=== PATIENT | female | born 1945 | race Caucasian/White ===

== ENCOUNTER 2017-08-11 14:00 | Emergency (ER) | payer MEDICARE | END 2017-08-11 14:47 | disposition home or self-care (01) | LOC: ER 14:47 | DX: B02.9 Zoster without complications (principal); E11.40 Type 2 diabetes mellitus with diabetic neuropathy, unspecified; I11.0 Hypertensive heart disease with heart failure; I50.9 Heart failure, unspecified; E11.22 Type 2 diabetes mellitus with diabetic chronic kidney disease; M10.9 Gout, unspecified; M79.7 Fibromyalgia | CPT/HCPCS: 99283 ==

== ENCOUNTER 2019-02-24 12:41 | Emergency (ER) | payer MEDICARE ==
[~2019-02-24] VITALS: Ht 162.6 cm; Wt 157.9 kg
[~2019-02-24 12:41] MED LIST: ALLO100T PO; ALLO300T PO; CARV6.25 PO; CETI10TA22 PO; CYCL5TAB PO; Cyclobenzaprine Hcl PO; FAMC500T PO; FLUC100T7 PO; FURO40TA4 PO; FURO80TA3 PO; GABA-585 PO; HUM100VI SQ; Hydrocodone/Acetaminophen PO; INSU100C4 SQ; MONT10TA49 PO; MORP30TA PO; SPIR25TA5 PO; TRAM50TA PO
[2019-02-24 13:05] VITALS: BP 152/72
[2019-02-24] MEDS ORDERED: DIPHTH,PERTUSS(ACELL),TET TOX 0.5 ML DISP.SYRIN. VAX IM ONE ×2 (13:30→13:42)
[2019-02-24] MEDS ORDERED: AMOX1TAB61 PO (13:34)
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
== END 2019-02-24 13:51 | disposition home or self-care (01) ==
LOC: ER 12:41
DX: S60.221A Contusion of right hand, initial encounter (principal); N28.9 Disorder of kidney and ureter, unspecified; E11.9 Type 2 diabetes mellitus without complications; I11.0 Hypertensive heart disease with heart failure; I50.9 Heart failure, unspecified; M10.9 Gout, unspecified; E66.9 Obesity, unspecified; Z68.43 Body mass index [BMI] 50.0-59.9, adult; Z90.710 Acquired absence of both cervix and uterus; W54.0XXA Bitten by dog, initial encounter; Y93.89 Activity, other specified; Y92.89 Other specified places as the place of occurrence of the external cause; Y99.8 Other external cause status
CPT/HCPCS: 90471; 90715; 99284

== ENCOUNTER 2019-05-20 13:27 | Emergency (ER) | payer MEDICARE ==
[~2019-05-20] VITALS: Ht 162.6 cm; Wt 145.1 kg
[~2019-05-20 13:27] MED LIST changes: +AMOX1TAB61 PO; -CETI10TA22 PO; +CETI10TA24 PO
[2019-05-20] MEDS ORDERED: ONDANSETRON ODT 4 MG TAB.RAPDIS. ONE (14:02)
[2019-05-20] MEDS ORDERED: oxyCODONE/APAP 5/325 1 TAB TABLET PO ONE (14:15)
[2019-05-20] MEDS ORDERED: ONDANSETRON ODT 4 MG TAB.RAPDIS. PO ONE (14:15)
--- NOTE | 2019-05-20 14:41 | RAD ---
Examination: CT head and cervical spine without contrast HISTORY: History of fall off the stairs, trauma CT HEAD COMPARISON: None Available. Exposure: One or more of the following individualized dose reduction techniques were utilized for this examination: 1. Automated exposure control 2. Adjustment of the mA and/or kV according to patient size 3. Use of iterative reconstruction technique TECHNIQUE: 5 mm contiguous axial images were obtained from the skull base to the vertex in both bone and soft tissue algorithm. FINDINGS: No abnormal attenuation within the brain parenchyma. No evidence of acute intracranial hemorrhage. No extra-axial fluid collections. No mass effect or midline shift. Ventricular size is appropriate. Basal cisterns are patent. No fractures identified.Mukherjee-white differentiation is preserved.Globes and orbits are within normal limits. Paranasal sinuses and mastoid air cells are clear. IMPRESSION: No acute intracranial findings. CT CERVICAL SPINE INDICATION: Fall COMPARISON: 11/14/2013 Technique: 2.5 mm contiguous axial images were obtained from the skull base through the cervicothoracic junction in both bone and soft tissue algorithm. Additional sagittal and coronal reconstructions were also performed. FINDINGS: Vertebral body heights and alignment are maintained. Cervical lordosis is preserved. The lateral masses of C1 are aligned upon C2. No fractures identified. Moderate to severe intervertebral disc height loss identified in the cervical spine particularly at C4-C5, C5-C6, C6-C7 vertebral levels with anterior and posterior osteophyte formation. The bilateral facets are well aligned. The paraspinous soft tissues are unremarkable. Visualized intracranial contents are unremarkable. Lung apices are clear. IMPRESSION: 1. No acute fracture cervical spine. Correlate clinically. 2. Moderate to severe degenerative changes cervical spine. Electronically signed by: Miguel Dang MD (05/20/2019 2:38 PM) [id number]
--- NOTE | 2019-05-20 15:05 | RAD ---
Examination: 2 views of the lumbar spine, 3 views of the bilateral knees, 2 views of the right hip with frontal view of the pelvis HISTORY: History of fall COMPARISON: None available FINDINGS: The bilateral femoral heads within the acetabula. There is mild to moderate joint space loss bilateral hip joint likely degenerative changes. The lumbar vertebral body heights are maintained. Moderate to severe degenerative changes identified in the lumbar spine. Severe joint space loss identified in the medial, lateral, patellofemoral compartments likely tricompartmental degenerative changes bilateral knees. IMPRESSION: 1. No acute osseous findings. 2. Degenerative changes as described above. Electronically signed by: Miguel Dang MD (05/20/2019 3:03 PM) [id number]
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
[2019-05-20 16:31] VITALS: BP 138/63
== END 2019-05-20 18:03 | disposition home or self-care (01) ==
LOC: ER 13:27
DX: G89.29 Other chronic pain (principal); M54.5 Low back pain; G89.11 Acute pain due to trauma; R51 Headache; M25.561 Pain in right knee; M25.562 Pain in left knee; M25.551 Pain in right hip; M10.9 Gout, unspecified; E66.9 Obesity, unspecified; Z68.43 Body mass index [BMI] 50.0-59.9, adult; E11.9 Type 2 diabetes mellitus without complications; I11.0 Hypertensive heart disease with heart failure; I50.9 Heart failure, unspecified; Z90.710 Acquired absence of both cervix and uterus; Z98.890 Other specified postprocedural states; W01.0XXA Fall on same level from slipping, tripping and stumbling without subsequent striking against object, initial encounter; Y93.01 Activity, walking, marching and hiking; Y92.89 Other specified places as the place of occurrence of the external cause; Y99.8 Other external cause status
CPT/HCPCS: 70450; 72100; 72125; 73502; 73562; 99284; Q0162

== ENCOUNTER 2020-05-17 08:47 | Emergency (ER) | payer MEDICARE ==
[~2020-05-17] VITALS: Ht 162.6 cm; Wt 150.0 kg
[~2020-05-17 08:47] MED LIST changes: -CETI10TA24 PO; +CETI10TA74 PO; -FAMC500T PO; +FAMC500T3 PO
[2020-05-17 08:54] VITALS: BP 154/68
[2020-05-17] MEDS ORDERED: traMADol 50 MG TABLET PO ONE (09:15)
[2020-05-17] MEDS ORDERED: ALLOPURINOL 300 MG TABLET. PO SCH (09:15)
--- NOTE | 2020-05-17 09:22 | PHYS DOC ---
Past Medical History Past Medical History: Arthritis, CHF, Diabetes-Type II, Fibromyalgia, Hyp ertension, Renal Disease, Other Additional Past Medical Histor: gout, obesity Past Surgical History: Hysterectomy, Other Additional Past Surgical Histo: cervial laminectomy, lumbar laminectomy Smoking Status: Former Smoker Alcohol Use: None Drug Use: None General Adult EDM: Chief Complaint: LOWER EXT PAIN HPI: HPI: 74-year-old female past medical history significant for gout, hypertension, diabetes, obesity, fibromyalgia and CHF on Lasix, presents the ED brought in by EMS with complaints of right foot and ankle pain that started 2 days ago, denies any new trauma. States pain has gotten worse that she can "no longer walk on it." States she has not taken her medications this morning. Cannot recall her last gout flareup but states this feels different. Also reports right hip pain but states this is chronic-no new characteristics. States she has been unable to refill her hydrocodone from Dr. Harrell due to pharmacy requesting pcp to sign a particular form - has not seen pcp regarding this. No associated rash or fever. Review of Systems: Review of Systems: Constitutional: Denies fever or chills. [] Eyes: Denies change in visual acuity. [] HENT: Denies nasal congestion or sore throat. [] Respiratory: Denies cough or shortness of breath. [] Cardiovascular: Denies chest pain or edema. [] GI: Denies abdominal pain, nausea, vomiting, bloody stools or diarrhea. [] : Denies dysuria or hematuria Musculoskeletal: Denies back pain or joint swelling Integument: Denies rash or diaphoresis Neurologic: Denies headache, focal weakness or sensory changes. [] Endocrine: Denies polyuria or polydipsia. [] Lymphatic: Denies swollen glands. [] Psychiatric: Denies depression or anxiety. [] Heart Score: Risk Factors: Risk Factors: DM, Current or recent (<one month) smoker, HTN, HLP, family history of CAD, obesity. Risk Scores: Score 0 - 3: 2.5% MACE over next 6 weeks - Discharge Home Score 4 - 6: 20.3% MACE over next 6 weeks - Admit for Clinical Observation Score 7 - 10: 72.7% MACE over next 6 weeks - Early Invasive Strategies Current Medications: Current Medications Medications (Trade) Dose Ordered Sig/Magali Start Time Stop Time Status Last Admin Dose Admin Allopurinol (Zyloprim) 600 mg DAILY 05/18/20 09:00 UNV Tramadol HCl (Ultram) 100 mg 1X ONCE 05/17/20 09:15 05/17/20 09:16 Allergies: Allergies: Allergies Coded Allergies Type Severity Reaction Last Updated Verified No Known Drug Allergies 12/25/13 No Physical Exam: PE: Constitutional: Well developed, well nourished, no acute distress, non-toxic appearance, obese HENT: Normocephalic, atraumatic, Eyes: EOMI, conjunctiva normal, no discharge. Neck: Normal range of motion, supple, Cardiovascular: S1/2 present, regular rhythm Lungs & Thorax: Speaking in full sentences, bilateral equal chest rise, no tachypnea or increased work of breathing Abdomen: soft, no tenderness, Skin: Warm, dry, no erythema, no rash. [] Back: No tenderness, no CVA tenderness. [] Extremities: No tenderness, no cyanosis, bilateral chronic lower extremity edema with hemosiderin deposition, R DP/PT intact, ttp over dorsum and plantar aspect of metatarsals and over right lateral malleoli Neurologic: Alert and oriented X 3, normal motor function, normal sensory function, no focal deficits noted. [] Psychologic: Affect normal, judgement normal, mood normal. [] Current Patient Data: Vital Signs: Vital Signs Date Time Temp Pulse Resp B/P (MAP) Pulse Ox O2 Delivery O2 Flow Rate FiO2 05/17/20 08:54 98.9 83 18 154/68 (96) 97 Room Air 98.9 EKG: EKG: [] Radiology/Procedures: Radiology/Procedures: IMAGING REPORT Signed PATIENT: ZI DELUCA ACCOUNT: [id number] : 1945 LOCATION: ER AGE: 74 SEX: F EXAM STATUS: REG ER ORD. PHYSICIAN: ARAVIND REYNA DO REASON: foot pain PROCEDURE: FOOT RIGHT 3V Clinical indications: Right hip pain and right foot pain. 2 view study of the right hip and AP view of the pelvis: No acute fracture or dislocation or lytic process is seen. There is mild degenerative joint space narrowing of the right hip joint without significant spurring. There is mild degenerative joint space narrowing of the left hip joint without spurring. No diastases is seen. IMPRESSION: No acute fracture. Mild primary degenerative osteoarthritis of both hip joints. Three-view right foot study: No acute fracture or dislocation or lytic process is seen. No periosteal reaction is evident. Plantar and posterior spurs of the calcaneus are seen. Dorsal spurring of the talonavicular joint and the first tarsal metatarsal joint is seen. Degenerative spurring of the tibiotalar joint compartment is seen. There is mild primary degenerative osteoarthritis of the first metatarsal phalangeal joint. IMPRESSION: No acute osseous abnormality. Electronically signed by: Dirk Dimas MD (05/17/2020 9:43 AM) [id number] DICTATED and SIGNED BY: DIRK DIMAS MD DATE: 05/17/20 [id number] Course & Med Decision Making: Course & Med Decision Making Pertinent Labs and Imaging studies reviewed. (See chart for details) Concern for atraumatic right foot pain with no signs of cellulitis, infection, worsening swelling, neurovascular injury or joint effusion. Also with chronic right hip pain. Pain could represent early gout infection. Unremarkable x- rays. Pt in no distress. Recommend [id number] analgesia and PMD follow-up for any narcotic refills. Will discharge home with strict ED return precautions were given for fever, rash, neurologic deficits. Encouraged urgent outpatient follow-up with PMD and orthopedic surgery. Life-threatening processes were considered but are low suspicion at this time, given history, physical exam and ED workup. Pt was educated on all prescription medications and adverse effects. All patient's questions were answered and pt was stable at time of discharge. Life/limb-threatening differential includes but is not limited to, trauma (fracture, dislocation, laceration, compartment syndrome, tendon or ligament injury), neurovascular injury or deficit, infection (osteomyelitis, abscess, cellulitis, septic arthritis, necrotizing fasciitis), deep vein thrombosis, renal/cardiac/liver disease, medication adverse effect, lymphedema/anasarca, vascular insufficiency or malignancy, I spoken with the patient and her caregivers. I explained the patient's condition, diagnoses and treatment plan based on the information available to me at this time. I have answered the patient and her caregiver's questions and addressed any concerns. The patient and her caregivers have a good understandi ng of patient's diagnosis, condition and treatment plan as can be expected at this point. Vital signs have been stable. Patient's condition is stable and appropriate for discharge from the emergency department. Patient will pursue further outpatient evaluation with primary care physician or other designated or consulting physician as outlined in the discharge instructions. The patient and/or caregivers are agreeable to this plan of care and follow-up instructions have been explained in detail. The patient and/or caregivers have received these instructions in written form and have expressed an understanding of the discharge instructions. The patient and/or caregivers are aware that any significant change of condition or worsening of symptoms should prompt immediate return to this or the closest emergency department or call to 911. Elepath Disclaimer: Elepath Disclaimer: This electronic medical record was generated, in whole or in part, using a voice recognition dictation system. Departure Departure Impression: Primary Impression: Right foot pain Additional Impression: History of gout Disposition: 01 DC HOME SELF CARE/HOMELESS Condition: STABLE Referrals: IWONA HARRELL MD (PCP) in 2-3 days Patient Instructions: Ankle Pain, Gout Additional Instructions: FOLLOW UP WITH ORTHOPEDICS: Orthopaedic Sports Medicine Orthopaedic Surgery [facility] Address: [address] [place] [address] EMERGENCY DEPARTMENT GENERAL DISCHARGE INSTRUCTIONS Thank you for coming to [facility] Emergency Department (ED) today and trusting us with you care. We trust that you had a positive experience in our Emergency Department. If you wish to speak to the department management, you may call the Director at [phone]. YOUR FOLLOW UP INSTRUCTIONS ARE FOLLOWS: 1. Do you have a private Doctor? If you do not have a private doctor, please ask for a resource list of physicians or clinics that may be able to assist you with follow up care. 2. The Emergency Physicain has interpreted your x-rays. The X-Ray specialist will also review them. If there is a change in the findings, you will be notified in 48 hours when at all possible. 3. A lab test or culture has been done, your results will be reviewed and you will be notified if you need a change in treatment. ADDITIONAL INSTRUCTIONS AND INFORMATION: 1. Your care today has been supervised by a physician who is specially trained in emergency care. Many problems require more than one evaluation for a complete diagnosis and treatment. We recommend that you schedule your follow up appointment as recommended to ensure complete treatment of you illness or injury. If you are unable to obtain follow up care and continue to have a problem, or if your condition worsens, we recommend that you return to the ED. 2. We are not able to safely determine your condition over the phone nor are we able to give sound medical advice over the phone. For these safety reasons, if you call for medical advice we will ask you to come to the ED for further evaluation. 3. If you have any questions regarding these discharge instructions please call the ED at [phone]. SAFETY INFORMATION: In the interest of safety, wellness, and injury prevention; we encourage you to wear your sealbelt, if you smoke; quite smoking, and we encourage family to use a protective helmet for bicycling and other sporting events that present an increased risk for head injury. IF YOUR SYMPTOMS WORSEN OR NEW SYMPTOMS DEVELOP, OR YOU HAVE CONCERNS ABOUT YOUR CONDITION; OR IF YOUR CONDITION WORSENS WHILE YOU ARE WAITING FOR YOUR FOLLOW UP APPOINTMENT; EITHER CONTACT YOUR PRIMARY CARE DOCTOR, THE PHYSICIAN WHOSE NAME AND NUMBER YOU WERE GIVEN, OR RETURN TO THE ED IMMEDIATELY. ARAVIND CASTILLO DO May 17, 2020 09:22
--- NOTE | 2020-05-17 09:49 | RAD ---
Clinical indications: Right hip pain and right foot pain. 2 view study of the right hip and AP view of the pelvis: No acute fracture or dislocation or lytic pr ocess is seen. There is mild degenerative joint space narrowing of the right hip joint without signif icant spurring. There is mild degenerative joint space narrowing of the left hip joint without spurri ng. No diastases is seen. IMPRESSION: No acute fracture. Mild primary degenerative osteoarthritis of both hip joints. Three-view right foot study: No acute fracture or dislocation or lytic process is seen. No periosteal reaction is evident. Plantar and posterior spurs of the calcaneus are seen. Dorsal spurring of the t alonavicular joint and the first tarsal metatarsal joint is seen. Degenerative spurring of the tibiot alar joint compartment is seen. There is mild primary degenerative osteoarthritis of the first metata rsal phalangeal joint. IMPRESSION: No acute osseous abnormality. Electronically signed by: Lowell Dimas MD (05/17/2020 9:43 AM) [id number]
== END 2020-05-17 10:12 | disposition home or self-care (01) ==
LOC: ER 08:47
DX: M79.671 Pain in right foot (principal); M10.9 Gout, unspecified; E11.9 Type 2 diabetes mellitus without complications; I11.0 Hypertensive heart disease with heart failure; I50.9 Heart failure, unspecified; Z87.891 Personal history of nicotine dependence; Z90.710 Acquired absence of both cervix and uterus
CPT/HCPCS: 73502; 73630; 99284

== ENCOUNTER 2021-09-29 13:26 | Inpatient (IN) | payer MEDICARE ==
[~2021-09-29] VITALS: Ht 162.6 cm; Wt 141.4 kg
[2021-09-29] MEDS: ACETAMINOPHEN/CODEINE 300/30MG TABLET. PO PRN ×2 (11:30→23:30)
[2021-09-29] MEDS: ERYTHROMYCIN 0.5% OPHTH OINTMENT 1GM TUBE. OU SCH ×2 (11:30→23:30)
[2021-09-29 14:02] LABS: BASO % 0 % (0-3); EOS # 0.2 x10^3/uL (0.0-0.7); EOS % 2 % (0-3); HEMATOCRIT 35.5 % (36.0-47.0); HEMOGLOBIN 11.8 g/dL (12.0-15.5); LYMPH # 0.8 x10^3/uL (1.0-4.8); LYMPH % 7 % (24-48); MEAN CORPUSCULAR HEMOGLOBIN 31 pg (25-35); MEAN CORPUSCULAR HGB CONC 33 g/dL (31-37); MEAN CORPUSCULAR VOLUME 93 fL (79-100); MONO # 0.7 x10^3/uL (0.0-1.1); MONO % 6 % (0-9); NEUT # 9.5 x10^3/uL (1.8-7.7); NEUT % 85 % (31-73); PLATELET COUNT 223 x10^3/uL (140-400); RED BLOOD COUNT 3.81 x10^6/uL (3.50-5.40); WHITE BLOOD COUNT 11.2 x10^3/uL (4.0-11.0)
--- NOTE | 2021-09-29 14:04 | EKG ---
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
[2021-09-29 14:10] LABS: CALCIUM 8.8 mg/dL (8.5-10.1); CREATININE 2.1 mg/dL (0.6-1.0); GFR 22.8; POTASSIUM 3.6 mmol/L (3.5-5.1)
[2021-09-29 14:14] LABS: PROTHROMBIN TIME PATIENT 15.1 SEC (11.7-14.0)
[2021-09-29 14:16] LABS: ALBUMIN 3.2 g/dL (3.4-5.0); ALBUMIN/GLOBULIN RATIO 0.8 (1.0-1.7); MAGNESIUM 2.1 mg/dL (1.8-2.4); TOTAL BILIRUBIN 1.5 mg/dL (0.2-1.0)
[2021-09-29 14:18] LABS: D-DIMER 0.5 ug/mlFEU (0.00-0.50)
--- NOTE | 2021-09-29 14:53 | PHYS DOC ---
Past Medical History Past Medical History: Arthritis, CHF, Diabetes-Type II, Fibromyalgia, Hypertension, Renal Disease, Other Additional Past Medical Histor: gout, obesity, cardiomegaly. Pt becomes upset when asked about med hx. (TOBI RAMIREZ APRN) Past Surgical History: Hysterectomy, Other Additional Past Surgical Histo: cervial laminectomy, lumbar laminectomy (TOBI RAMIREZ APRN) Smoking Status: Never Smoker Alcohol Use: None Drug Use: None (TOBI RAMIREZ APRN) General Adult EDM: Chief Complaint: SHORTNESS OF BREATH HPI: HPI: Patient is a 75 year old female who presents to the emergency department complaining of shortness of breath for the past 4 days. Patient reports she seen her primary care physician Dr. Harrell 2 weeks ago for abnormal checkup but was not ill at that time. Patient states that she has worsening shortness of breath with exertion. Denies chest pain or discomfort. Denies nausea, vomiting, diarrhea, denies chest congestion or nasal congestion. Denies recent fever or chills. Patient denies abdominal pain or discomfort. Patient denies other physical complaints or physical concerns. (TOBI RAMIREZ APRN) Review of Systems: Review of Systems: 14 body systems of review of systems have been reviewed. See HPI for pertinent positives and negative responses, otherwise all other systems are negative, nonpertinent or noncontributory. Constitutional: Negative except as outlined in HPI above. Skin: Negative except as outlined in HPI above. Eyes: Negative except as outlined in HPI above. HENT: Negative except as outlined in HPI above. Respiratory: Negative except as outlined in HPI above. Cardiovascular: Negative except as outlined in HPI above. GI: Negative except as outlined in HPI above. : Negative except as outlined in HPI above. Musculoskeletal: Negative except as outlined in HPI above. Integument: Negative except as outlined in HPI above. Neurologic: Negative except as outlined in HPI above. Endocrine: Negative except as outlined in HPI above. Lymphatic: Negative except as outlined in HPI above. Psychiatric: Negative except as outlined in HPI above. (TOBI RAMIREZ APRN) Heart Score: C/O Chest Pain: No Risk Factors: Risk Factors: DM, Current or recent (<one month) smoker, HTN, HLP, family history of CAD, obesity. Risk Scores: Score 0 - 3: 2.5% MACE over next 6 weeks - Discharge Home Score 4 - 6: 20.3% MACE over next 6 weeks - Admit for Clinical Observation Score 7 - 10: 72.7% MACE over next 6 weeks - Early Invasive Strategies (TOBI RAMIREZ APRN) Allergies: Allergies: Allergies Coded Allergies Type Severity Reaction Last Updated Verified No Known Drug Allergies 12/25/13 No (TOBI RAMIREZ APRN) Physical Exam: PE: Constitutional: Well developed, well nourished, no acute distress, non-toxic appearance. 75-year-old female in no apparent distress. HENT: Normocephalic, atraumatic. Oropharynx moist, pink, no deep tissue infectious process appreciated. Nasal turbinates patent. Eyes: Conjunctiva slightly erythematous with yellow purulent discharge bilaterally. PERRLA Neck: Normal range of motion, no stridor. There is no nuchal rigidity, no meningeal signs. Cardiovascular: No cyanosis appreciated, distal cap refill less than 2 seconds. Regular rate and rhythm, heart sounds S1-S2 to auscultation. Lungs & Thorax: Patient is in no respiratory distress, no audible adventitious lung sounds appreciated. Lung sounds are clear to auscultation upper lobes, diminished bilateral lower lobes, no other adventitious lung sounds appreciated per auscultation. Abdomen: Nontender, no abnormalities noted. Skin: Warm, dry, no erythema, no rash. Back: No tenderness, no deformities. Extremities: No tenderness, no cyanosis, no clubbing, ROM intact, marked lower extremity edema. Neurologic: Alert and oriented X 3, normal motor function, normal sensory function, no focal deficits noted. Psychologic: Affect normal, judgement normal, mood normal. (TOBI RAMIREZ APRN) Current Patient Data: Labs: Laboratory Tests Test 09/29/21 13:41 White Blood Count 11.2 x10^3/uL (4.0-11.0) H Red Blood Count 3.81 x10^6/uL (3.50-5.40) Hemoglobin 11.8 g/dL (12.0-15.5) L Hematocrit 35.5 % (36.0-47.0) L Mean Corpuscular Volume 93 fL (79-100) Mean Corpuscular Hemoglobin 31 pg (25-35) Mean Corpuscular Hemoglobin Concent 33 g/dL (31-37) Red Cell Distribution Width 15.0 % (11.5-14.5) H Platelet Count 223 x10^3/uL (140-400) Neutrophils (%) (Auto) 85 % (31-73) H Lymphocytes (%) (Auto) 7 % (24-48) L Monocytes (%) (Auto) 6 % (0-9) Eosinophils (%) (Auto) 2 % (0-3) Basophils (%) (Auto) 0 % (0-3) Neutrophils # (Auto) 9.5 x10^3/uL (1.8-7.7) H Lymphocytes # (Auto) 0.8 x10^3/uL (1.0-4.8) L Monocytes # (Auto) 0.7 x10^3/uL (0.0-1.1) Eosinophils # (Auto) 0.2 x10^3/uL (0.0-0.7) Basophils # (Auto) 0.0 x10^3/uL (0.0-0.2) Prothrombin Time 15.1 SEC (11.7-14.0) H Prothrombin Time INR 1.2 (0.8-1.1) H D-Dimer (Melly) 0.50 ug/mlFEU (0.00-0.50) Sodium Level 144 mmol/L (136-145) Potassium Level 3.6 mmol/L (3.5-5.1) Chloride Level 105 mmol/L (98-107) Carbon Dioxide Level 27 mmol/L (21-32) Anion Gap 12 (6-14) Blood Urea Nitrogen 42 mg/dL (7-20) H Creatinine 2.1 mg/dL (0.6-1.0) H Estimated GFR (Cockcroft-Gault) 22.8 BUN/Creatinine Ratio 20 (6-20) Glucose Level 136 mg/dL (70-99) H Calcium Level 8.8 mg/dL (8.5-10.1) Magnesium Level 2.1 mg/dL (1.8-2.4) Total Bilirubin 1.5 mg/dL (0.2-1.0) H Aspartate Amino Transferase (AST) 19 U/L (15-37) Alanine Aminotransferase (ALT) 9 U/L (14-59) L Alkaline Phosphatase 121 U/L (46-116) H Troponin I High Sensitivity 38 ng/L (4-50) Total Protein 7.0 g/dL (6.4-8.2) Albumin 3.2 g/dL (3.4-5.0) L Albumin/Globulin Ratio 0.8 (1.0-1.7) L Laboratory Tests 09/29/21 13:41 Laboratory Tests 09/29/21 13:41 Vital Signs: Vital Signs Date Time Temp Pulse Resp B/P (MAP) Pulse Ox O2 Delivery O2 Flow Rate FiO2 09/29/21 13:46 100.0 91 20 176/82 (113) 95 Room Air 100.0 (TOBI RAMIREZ APRN) EKG: EKG: EKG performed at 1334 by ED nursing staff shows normal sinus rhythm with left a xis deviation, heart rate 86 bpm, OR interval 0.196, QTc interval 0.443, no acute STEMI, no ACS, no acute ischemia appreciated, EKG interpreted by ED attending physician Dr. Liriano. (TOBI RAMIREZ APRN) Radiology/Procedures: Radiology/Procedures: REASON: Shortness of breath PROCEDURE: CHEST PA & LATERAL XR CHEST 2V History: Reason: Shortness of breath / Spl. Instructions: / History: Comparison: August 17, 2015 Findings: No consolidation or pleural effusion. Normal heart size. No pneumothorax. DISH related changes of the thoracic spine. Prominence of the ellie. Impression: 1. No focal consolidation. 2. Prominence of the bilateral ellie, may relate to enlarged pulmonary vasculature or lymphadenopathy. Electronically signed by: Bill Santana DO (09/29/2021 2:59 PM) [id number] (TOBI RAMIREZ APRN) Course & Med Decision Making: Course & Med Decision Making Pertinent Labs and Imaging studies reviewed. (See chart for details) 75-year-old female, vital signs reviewed, presents emerged from concerning short of breath on exertion for the past 4 days. Patient also complains of bilateral eye crusts when she wakes up for the past day. Physical examination is concern ing for exacerbation congestive heart failure, also conjunctivitis. Will order cardiac monitoring, twelve-lead EKG, PA lateral chest, CBC, D-dimer, CMP, magnesium level, NT proBNP, PT/INR, high-sensitivity troponin I, urinalysis assay, blood cultures x2, rapid COVID and flu testing. Lactic acid with reflex. We will start on erythromycin ointment to both eyes regimen every 4 hours x7 days Patient's labs unremarkable or at baseline, called and discussed patient case and ED work-up with patient's primary care physician Dr. Harrell who requested patient be admitted under observation to telemetry unit, 80 of Lasix IV x1, consult cardiology. Patient is awaiting telemetry unit assignment bed at this time. Discussed with patient admission to hospital overnight, patient is amenable to hospital admission. (TOBI RAMIREZ APRN) Dragon Disclaimer: Dragon Disclaimer: This electronic medical record was generated, in whole or in part, using a voice recognition dictation system. (OTBI RAMIREZ APRN) Departure Departure Impression: Primary Impression: Short of breath on exertion Additional Impression: Conjunctivitis Qualified Codes: H10.33 - Unspecified acute conjunctivitis, bilateral Disposition: ADMITTED INPATIENT Admitting Physician: Iwona Harrell (Admit to Dr. Harrell to telemetry unit observation, consult cardiology specialty.) (TOBI RAMIREZ APRN) Condition: GUARDED Referrals: IWONA HARRELL MD (PCP) Scripts Aspirin (ASPIRIN EC) 81 Mg Tablet.dr 1 TAB PO DAILY for heart for 30 Days, #30 TAB 3 Refills Prov: HEIKE FORTUNE APRN 10/04/21 Methylprednisolone (MEDROL) 4 Mg Tab.ds.pk 1 PKG PO UD for copd, #1 PKG Prov: IWONA HARRELL MD 10/04/21 Cefdinir (CEFDINIR) 300 Mg Capsule 1 CAP PO BID for pneumonia, #14 CAP Prov: IWONA HARRELL MD 10/04/21 Insulin Lispro (Admelog) 100 Unit/1 Ml Vial 0 SQ BIDBFRMEAL for DM for 30 Days, #1 EACH Glucose 151-200 give 2 units Glucose 201- 250 give 3 units. Glucose 251-300 give 4 units Glucose 301-350 give 6 units Glucose 351-400 give 8 units. Prov: IWONA HARRELL MD 10/04/21 Lactobacillus Rhamnosus Gg (CULTURELLE) 1 Each Cap.sprink 1 CAP PO BID for antibiotic use for 14 Days, #28 CAP Prov: IWONA HARRELL MD 10/04/21 Erythromycin Base (Erythromycin) 1 Gm Oint...g. 0.5 INCH OU Q4HRS for blephritis for 4 Days, #1 MISC Prov: IWONA HARRELL MD 10/04/21 Guaifenesin (MUCINEX) 600 Mg Tablet.er 600 MG PO BID for cough, #30 TAB.SR Prov: IWONA HARRELL MD 10/04/21 Acetaminophen (ACETAMINOPHEN) 325 Mg Tablet 650 MG PO PRN Q6HRS PRN for MILD PAIN / TEMP > 100.3'F, #30 TAB Prov: WIONA HARRELL MD 10/04/21 Benzonatate (BENZONATATE) 100 Mg Capsule 100 MG PO [id number] for cough for 7 Days, #21 CAP Prov: IWONA HARRELL MD 10/04/21 Heparin Sodium,Porcine (HEPARIN SODIUM) 5,000 Unit/1 Ml Vial 5000 UNIT SQ Q12HR for DVT prophylaxis for 10 Days, #20 EACH Prov: IWONA HARRELL MD 10/04/21 Ipratropium/Albuterol Sulfate (DUONEB 0.5-3(2.5) MG/3 ML) 3 Ml Ampul.neb 3 ML NEB RTQID for COPD for 14 Days, #56 EACH Prov: IWONA HARRELL MD 10/04/21 Insulin Aspart (NOVOLOG) 100 Unit/1 Ml Cartridge 5 UNIT SQ BID for DM for 30 Days, #1 EACH Prov: IWONA HARRELL MD 10/04/21 Hum Insulin Nph/Reg Insulin Hm (HUMULIN 70-30 VIAL) 100 Unit/1 Ml Vial 14 UNIT SQ BID for DM for 30 Days, #1 VIAL IN AM and at bedtime Prov: IWONA HARRELL MD 10/04/21 Attending Signature I have participated in the care of this patient and I have reviewed and agree with all pertinent clinical information above including history, exam, and recommendations. (MAX LIRIANO DO) TOBI RAMIREZ APRN September 29, 2021 14:53 MAX LIRIANO DO Oct 06, 2021 05:52
--- NOTE | 2021-09-29 15:02 | RAD ---
XR CHEST 2V History: Reason: Shortness of breath / Spl. Instructions: / History: Comparison: August 17, 2015 Findings: No consolidation or pleural effusion. Normal heart size. No pneumothorax. DISH related changes of the thoracic spine. Prominence of the ellie. Impression: 1. No focal consolidation. 2. Prominence of the bilateral ellie, may relate to enlarged pulmonary vasculature or lymphadenopathy . Electronically signed by: Bill Santana DO (09/29/2021 2:59 PM) [id number]
[2021-09-29] MEDS ORDERED: FUROSEMIDE 40 MG/4 ML VIAL. IVP ONE (18:30)
[2021-09-29 19:00] VITALS: BP 123/72
[2021-09-29 19:09] LABS: INFLUENZA A PATIENT NEGATIVE (NEGATIVE); INFLUENZA B PATIENT NEGATIVE (NEGATIVE)
[2021-09-29 23:00] VITALS: BP 138/63
[2021-09-30 03:00] VITALS: BP 149/61
[2021-09-30] MEDS: ACETAMINOPHEN/CODEINE 300/30MG TABLET. PO PRN (05:21)
[2021-09-30] MEDS: ERYTHROMYCIN 0.5% OPHTH OINTMENT 1GM TUBE. OU SCH ×5 (05:22→21:29)
[2021-09-30 07:00] VITALS: BP 122/55
[2021-09-30 08:43] LABS: CALCIUM 8.3 mg/dL (8.5-10.1); CREATININE 2.3 mg/dL (0.6-1.0); GFR 20.6; POTASSIUM 3.4 mmol/L (3.5-5.1)
[2021-09-30] MEDS ORDERED: ACETAMINOPHEN PO PRN (08:45)
[2021-09-30] MEDS ORDERED: HYDROCODONE PO PRN (08:45)
[2021-09-30] MEDS ORDERED: CETIRIZINE HCL 10 MG TABLET. PO PRN (08:45)
[2021-09-30 08:48] LABS: CHOLESTEROL/HDL RATIO 2.2
[2021-09-30] MEDS ORDERED: INSULIN NPH/REG HUM 70/30 300 UNITS/3 ML VIAL. SQ SCH (09:00)
--- NOTE | 2021-09-30 09:18 | PDOC ---
Provider Note Date of Service: DATE: 09/30/21 TIME: 09:18 Provider Note H&P dictated [id number] Justifications for Admission Other Justification IWONA GALLOWAY MD September 30, 2021 09:18
[2021-09-30] MEDS: CARVEDILOL 6.25 MG TABLET. PO SCH ×2 (09:55→17:06)
[2021-09-30] MEDS: cefTRIAXone IV Push 1 GM VIAL. IVP SCH (09:55)
[2021-09-30] MEDS: AZITHROMYCIN 500 MG in IV DEXTROSE 5% 250 ML IV SCH (09:55)
[2021-09-30] MEDS: SPIRONOLACTONE 25 MG TABLET PO SCH (09:56)
[2021-09-30] MEDS: GABAPENTIN 100 MG CAPSULE. PO SCH ×3 (09:56→21:28)
[2021-09-30] MEDS: HEPARIN for SUB-Q USE 5,000 UNIT/ML VIAL. SQ SCH ×2 (09:59→21:39)
--- NOTE | 2021-09-30 09:59 | HP ---
DATE OF SERVICE: 09/30/2021 ADMIT DATE: 09/29/2021 HISTORY OF PRESENT ILLNESS: This 75 years old female with a history of morbid obesity, chronic lymphedema, CKD 3-4, hypertension, hyperlipidemia, nonischemic cardiomyopathy was seen in my office recently and at that time she was asymptomatic. About five days ago, she started having cough, congestion, dyspnea and fever and chills. She was seen in the emergency room yesterday. BNP was 1700. Chest x-ray was unremarkable. Her WBC count was 11.2, hemoglobin 11.8. She had a fever of 100 degrees Fahrenheit in the emergency room, she had a BUN 42, creatinine 2.1 and BNP of 1726. She was given a dose of IV Lasix. Influenza A and B were negative. SARS-CoV-2 rapid antigen was negative. Because of the dyspnea and elevated BNP, the patient was admitted for further evaluation and management. SYSTEMS REVIEW: The patient is not a good historian. She is complaining of cough and congestion, mucus is yellow and brown. She does admit to fever and chills and shortness of breath. She denies any nausea, vomiting, diarrhea or constipation. She feels weak and tired. Other systems were reviewed and are negative. PAST MEDICAL HISTORY: She has a history of hypertension, hyperlipidemia, COPD, low back pain, chronic with left lower extremity radiculopathy, spinal stenosis of L2-L3, L3-L4; osteoarthritis; neural foraminal compromise of L4-L5 and degenerative disk disease. She has fibromyalgia, gout, CKD 3-4, diabetes mellitus with neuropathy, morbid obesity. SURGICAL HISTORY: Includes total knee replacement, hysterectomy, cervical and lumbar laminectomy. FAMILY HISTORY: Brother had cancer of the prostate, hypertension and CAD. Mother had cancer of the gallbladder and hypertension. Sister had diabetes mellitus. SOCIAL HISTORY: Former smoker, quit in 1983. No history of alcoholism or drug abuse. ALLERGIES: Not known any. PHYSICAL EXAMINATION: Vital signs Temperature 100, pulse 91/min, respirations 20/min, blood pressure 176/82 mmHg GENERAL: The patient is an elderly female who is acutely ill. She is in mild distress. She has morbid obesity. EYES: Pupils reacting to light. The patient has blepharitis. Throat congested. SKIN: Warm and dry. There is no cyanosis. The patient has stasis dermatitis of both lower extremities that is chronic. NECK: Supple. JVP normal. No thyromegaly. Trachea midline. LUNGS: Decreased breath sounds at bases bilaterally. No rales noted. CARDIOVASCULAR: S1, S2 regular, tachycardia present. ABDOMEN: Soft, nontender, no guarding, no rigidity. Bowel sounds present. EXTREMITIES: Chronic lymphedema with stasis dermatitis. CENTRAL NERVOUS SYSTEM: Generalized weakness, acutely ill, poor historian. LABORATORY FINDINGS: WBC count 11.2, hemoglobin 11.8, platelet count 223,000, polys 85. Sodium 144, potassium 3.6. BNP 1726, BUN 42, creatinine 2.1, glucose 136, bilirubin 1.5, magnesium 2.1, albumin 3.2. Today potassium is 3.4, BUN is 44, creatinine 2.3, glucose 127, triglycerides 53. TSH 0.972, HDL 46, LDL 46. Troponin is 38. Lactic acid 1.4. Influenza A and B and SARS-CoV-2 rapid antigen test are negative. Chest x-ray does not show any acute infiltrates. IMPRESSION: 1. Acute bronchitis with exacerbation of chronic obstructive pulmonary disease. 2. Rule out COVID-19 infection. 3. Morbid obesity. 4. Diabetes mellitus type 2 with neuropathy. 5. Osteoarthritis. 6. Chronic lumbar spinal stenosis. 7. Fibromyalgia. 8. Gout. 9. Chronic kidney disease stage III to IV. Her baseline creatinine is 2.1. PLAN: 1. For fever with a max temperature of 100 degrees and her symptoms of bronchitis, I will start her on IV Rocephin and Zithromax. Consult Dr. Mckeon for pulmonary evaluation and management. Start albuterol inhaler. Recheck labs in a.m. Restart p.o. Lasix tomorrow. Consult Dr. Castillo for cardiology evaluation and management. 2. Diabetic neuropathy. She takes 14 units of Novolin NPH 70/30 in the morning and 14 units at bedtime. She takes 10 units of NovoLog insulin in the morning and 10 units at supper. I will decrease the dose of insulin and use sliding scale insulin. Monitor blood sugars. For details, please refer to the orders. Monitor closely. Start subcutaneous heparin for DVT prophylaxis. Prognosis of this patient is poor due to her multiple medical problems. DIANA/KG DR: DIANA/lo TID: [id number] MTDEvert
[2021-09-30] MEDS: INSULIN NPH/REG HUM 70/30 300 UNITS/3 ML VIAL. SQ SCH ×2 (10:04→21:38)
[2021-09-30 11:00] VITALS: BP 151/88
[2021-09-30] MEDS ORDERED: POTASSIUM CHLORIDE 20 MEQ TABLET.ER. PO ONE (12:30)
--- NOTE | 2021-09-30 12:31 | PDOC2 ---
CHEL BONILLA REMELTER 09/30/21 1231: CARDIAC CONSULT DATE OF CONSULT Date of Consult DATE: 09/30/21 TIME: 12:07 REASON FOR CONSULT Reason for Consult: BALL REFERRING PHYSICIAN Referring Physician: Merary SOURCE Source: Chart review, Patient HISTORY OF PRESENT ILLNESS HISTORY OF PRESENT ILLNESS This is a pleasant 75 yo female admitted for complains of shortness of breath and coughing. Denies any chest pain. Reports that she has been having nasal and chest congestion increasing over the last 5 days with productive cough and thick sputum. No palpitations. Denies significant increase in leg edema. Lives alone and denies p[rior exposure for potential covid-19. No prior hx of CAD, VTE. She has COPD but has ran out of her inhalers and denies any O2 home use and no recent pneumonia nor BRIDGET. She has not leatha able to sleep well lately and has been coughing to a point of nausea. She used to see a service unit operator at her PCPs office but has not been following one lately. Could not remember any past stress test. PAST MEDICAL HISTORY Past Medical History Cardiovascular: HTN, Hyperlipidemia, hx of NICM Pulmonary: COPD GI: Other (h/o gastritis ) Musculoskeletal: low back pain (chronic with radiculopathy LLE: spinal stenosis L2-L3, L3-L4. neuroal forminal compromise L4 L5 and DDD ), Osteoarthritis Rheumatologic: Fibromyalgia, Gout Renal/: Chronic renal insuff (CKD III-IV) Endocrine: Diabetes (with neuropathy insulin controlled), Other (morbid obesity ) PAST SURGICAL HISTORY Past Surgical History Total knee replacement, Hysterectomy, Other (cervical and lumbar laminectomy ) FAMILY HISTORY Family History: Coronary Artery Disease, Diabetes SOCIAL HISTORY Smoke: Quit ALCOHOL: none Drugs: None CURRENT MEDICATIONS CURRENT MEDICATIONS Current Medications Medications (Trade) Dose Ordered Sig/Magali Route PRN Reason Start Time Stop Time Status Last Admin Dose Admin Furosemide (Lasix) 40 mg 1X ONCE IVP 09/29/21 18:30 09/29/21 18:31 DC 09/29/21 18:46 Erythromycin (Romycin) 0.5 inch Q4HRS OU 09/29/21 20:00 09/30/21 09:56 Acetaminophen/ Codeine Phosphate (Tylenol #3) 2 tab PRN Q6HRS PRN PO PAIN 09/29/21 23:15 09/30/21 05:21 Carvedilol (Coreg) 6.25 mg BIDWMEALS PO 09/30/21 09:00 09/30/21 09:55 Gabapentin (Neurontin) 100 mg TID PO 09/30/21 09:00 09/30/21 09:56 Spironolactone (Aldactone) 25 mg DAILY PO 09/30/21 09:00 09/30/21 09:56 Heparin Sodium (Porcine) (Heparin Sodium) 5,000 unit Q12HR SQ 09/30/21 09:15 09/30/21 09:59 Insulin Human Isoph/Insulin Regular (HumuLIN 70-30 VIAL) 12 units DAILY08 SQ 09/30/21 09:30 09/30/21 10:04 Ceftriaxone Sodium (Rocephin) 1 gm Q24H IVP 09/30/21 10:00 09/30/21 09:55 Azithromycin 500 mg/Dextrose 250 ml @ 250 mls/hr Q24H IV 09/30/21 10:00 09/30/21 09:55 ALLERGIES ALLERGIES: Coded Allergies: No Known Drug Allergies (Unverified , 12/25/13) ROS Review of System 14 point ROS evaluated with pertinent positives noted per HPI PHYSICAL EXAM General: Alert, Oriented X3, Cooperative, No acute distress, Other (disheveld appearance) HEENT: Atraumatic, Mucous membr. moist/pink, Other (nasal congestion) Lungs: Other (diminished with upper wheeze) Heart: Regular rate (SR), Other (distant heart sounds) Abdomen: Soft, No tenderness, Other (obese) Skin: No breakdown, No significant lesion, Other (venous dermatitis) Neuro: Normal speech, Sensation intact Psych/Mental Status: Mental status NL, Other (flat affect) MUSCULOSKELETAL: Osteoarthritic changes both hands VITALS/I&O VITALS/I&O: Vital Signs Date Time Temp Pulse Resp B/P (MAP) Pulse Ox O2 Delivery O2 Flow Rate FiO2 09/30/21 09:55 75 122/55 09/30/21 08:00 Nasal Cannula 2.0 09/30/21 07:00 98.3 20 95 98.3 I & O 09/29/21 09/29/21 09/30/21 15:00 23:00 07:00 Intake Total 400 ml Balance 400 ml LABS Lab: Laboratory Tests Test 09/29/21 13:35 09/29/21 13:41 09/30/21 07:33 09/30/21 08:00 Influenza Type A Antigen Negative (NEGATIVE) Influenza Type B Antigen Negative (NEGATIVE) SARS-CoV-2 Antigen (Rapid) Negative (NEGATIVE) White Blood Count 11.2 x10^3/uL (4.0-11.0) H Red Blood Count 3.81 x10^6/uL (3.50-5.40) Hemoglobin 11.8 g/dL (12.0-15.5) L Hematocrit 35.5 % (36.0-47.0) L Mean Corpuscular Volume 93 fL (79-100) Mean Corpuscular Hemoglobin 31 pg (25-35) Mean Corpuscular Hemoglobin Concent 33 g/dL (31-37) Red Cell Distribution Width 15.0 % (11.5-14.5) H Platelet Count 223 x10^3/uL (140-400) Neutrophils (%) (Auto) 85 % (31-73) H Lymphocytes (%) (Auto) 7 % (24-48) L Monocytes (%) (Auto) 6 % (0-9) Eosinophils (%) (Auto) 2 % (0-3) Basophils (%) (Auto) 0 % (0-3) Neutrophils # (Auto) 9.5 x10^3/uL (1.8-7.7) H Lymphocytes # (Auto) 0.8 x10^3/uL (1.0-4.8) L Monocytes # (Auto) 0.7 x10^3/uL (0.0-1.1) Eosinophils # (Auto) 0.2 x10^3/uL (0.0-0.7) Basophils # (Auto) 0.0 x10^3/uL (0.0-0.2) Prothrombin Time 15.1 SEC (11.7-14.0) H Prothrombin Time INR 1.2 (0.8-1.1) H D-Dimer (Melly) 0.50 ug/mlFEU (0.00-0.50) Sodium Level 144 mmol/L (136-145) 144 mmol/L (136-145) Potassium Level 3.6 mmol/L (3.5-5.1) 3.4 mmol/L (3.5-5.1) L Chloride Level 105 mmol/L (98-107) 106 mmol/L (98-107) Carbon Dioxide Level 27 mmol/L (21-32) 27 mmol/L (21-32) Anion Gap 12 (6-14) 11 (6-14) Blood Urea Nitrogen 42 mg/dL (7-20) H 44 mg/dL (7-20) H Creatinine 2.1 mg/dL (0.6-1.0) H 2.3 mg/dL (0.6-1.0) H Estimated GFR (Cockcroft-Gault) 22.8 20.6 BUN/Creatinine Ratio 20 (6-20) Glucose Level 136 mg/dL (70-99) H 127 mg/dL (70-99) H Lactic Acid Level 1.4 mmol/L (0.4-2.0) Calcium Level 8.8 mg/dL (8.5-10.1) 8.3 mg/dL (8.5-10.1) L Magnesium Level 2.1 mg/dL (1.8-2.4) Total Bilirubin 1.5 mg/dL (0.2-1.0) H Aspartate Amino Transferase (AST) 19 U/L (15-37) Alanine Aminotransferase (ALT) 9 U/L (14-59) L Alkaline Phosphatase 121 U/L (46-116) H Troponin I High Sensitivity 38 ng/L (4-50) QG-Ucn-U-Type Natriuretic Peptide 1726 pg/mL (0-449) H Total Protein 7.0 g/dL (6.4-8.2) Albumin 3.2 g/dL (3.4-5.0) L Albumin/Globulin Ratio 0.8 (1.0-1.7) L Glucose (Fingerstick) 138 mg/dL (70-99) H Triglycerides Level 53 mg/dL (0-150) Cholesterol Level 103 mg/dL (0-200) LDL Cholesterol, Calculated 46 mg/dL (0-100) VLDL Cholesterol, Calculated 11 mg/dL (0-40) Non-HDL Cholesterol Calculated 57 mg/dL (0-129) HDL Cholesterol 46 mg/dL (40-60) Cholesterol/HDL Ratio 2.2 Thyroid Stimulating Hormone (TSH) 0.972 uIU/mL (0.358-3.74) Test 09/30/21 12:04 Glucose (Fingerstick) 143 mg/dL (70-99) H Laboratory Tests 09/29/21 13:41 Laboratory Tests 09/29/21 13:41 09/30/21 08:00 ASSESSMENT/PLAN ASSESSMENT/PLAN 1. AECOPD 2. Acute bronchitis/URI 3. PUI: vaccinated 4. HTN: initially labile 5. DM2: lipids are on goal 6. CKD3-4 7. Venous insufficiency 8. Morbid obesity 9. Suspect chronic diastolic CHF 10. Remote hx of NICM Recommendations 1. Continue antibiotic therapy 2. Agree with PO lasix 3. Continue with coreg but if wheezing continues then will consider alternative for HTN mgmt 4. Consider outpt BRIDGET workup 5. Significant cardiac risk factors, consider for outpt ischemic workup 6. TTE if PCR is neg MARKO MARIANO MD 10/01/212101: CARDIAC CONSULT ASSESSMENT/PLAN ASSESSMENT/PLAN Late entry for 09/30/21 The patient was seen and interviewed as well as examined at the bedside. The chart was reviewed. The case was discussed. Agree with the plan of care. Severe diastolic HF probable. Continue to treat infection issues. Supportive c are. CHEL BONILLA APRN September 30, 2021 12:31 MARKO MARIANO MD October 01, 2021 21:02
[2021-09-30] MEDS ORDERED: ONDANSETRON PF 4 MG/2 ML VIAL. IVP PRN (13:15)
[2021-09-30] MEDS: BENZONATATE 100 MG CAPSULE. PO SCH ×2 (13:56→21:28)
[2021-09-30 15:00] VITALS: BP 125/64
--- NOTE | 2021-09-30 15:03 | CARD ---
MR#: [id number] Date of Study: 09/30/2021 Ordering Physician: CHEL BONILLA, Referring Physician: CHEL BONILLA Tech: Wally Watts [facility] APPROVED REPORT EXAM: Two-dimensional and M-mode echocardiogram with Doppler and color Doppler. Other Information Quality : AverageHR: 83bpm Rhythm : NSR INDICATION COPD Congestive Heart Failure RISK FACTORS Hypertension Obesity Hyperlipidemia Smoking 2D DIMENSIONS Left Atrium(2D)4.7 (1.6-4.0cm)IVSd1.1 (0.7-1.1cm) Aortic Root(2D)3.6 (2.0-3.7cm)LVDd5.4 (3.9-5.9cm) LVOT Diameter2.1 (1.8-2.4cm)PWd1.1 (0.7-1.1cm) LA Oipvdl84 (18-58mL)LVDs4.4 (2.5-4.0cm) FS (%) 19.3 %SV56.4 ml Aortic Valve AoV Peak Edgar.173.3cm/sAoV VTI37.5cm AO Peak GR.12.0mmHgLVOT Peak Edgar.85.7cm/s AO Mean GR.7mmHgAVA (VMAX)1.66cm2 Mitral Valve MV E Rdppwmns09.8cm/sMV DECEL [id number] MV A Jqteohmb263.1cm/sE/A Ratio0.6 Pulmonary Valve PV Peak Jdhtcirs70.3cm/s Tricuspid Valve TR P. Xtnbwqxy724zq/sTR Peak Gr.14mmHg Pulmonary Vein S1 Bkinjzwj82.1cm/sD2 Cqbikhqv89.2cm/s LEFT VENTRICLE The left ventricle is normal size. There is normal left ventricular wall thickness. The systolic func tion is moderately impaired. The Ejection Fraction is 35-40%. There is global hypokinesis of the left ventricle. Transmitral Doppler flow pattern is Grade I-abnormal relaxation pattern. Tissue Doppler i maging reveals severe left ventricular diastolic dysfunction. No left ventricle thrombus noted on thi s study. There is no ventricular septal defect visualized. There is no left ventricular aneurysm. The re is no mass noted in the left ventricle. RIGHT VENTRICLE The right ventricle is normal size. There is normal right ventricular wall thickness. The right ventr icular systolic function is normal. ATRIA The left atrium is mildly dilated. The right atrium size is normal. The interatrial septum is intact with no evidence for an atrial septal defect or patent foramen ovale as noted on 2-D or Doppler imagi ng. AORTIC VALVE The aortic valve is mildly sclerotic. Doppler and Color Flow revealed no significant aortic regurgita tion. There is no significant aortic valvular stenosis. There is no aortic valvular vegetation. MITRAL VALVE The mitral valve is thickened but opens well. There is no evidence of mitral valve prolapse. There is no mitral valve stenosis. Doppler and Color-flow revealed mild to moderate mitral regurgitation. TRICUSPID VALVE The tricuspid valve is normal in structure and function. Doppler and Color Flow revealed trace tricus pid regurgitation. There is no tricuspid valve prolapse or vegetation. There is no tricuspid valve st enosis. PULMONIC VALVE The pulmonary valve is normal in structure and function. Doppler and Color Flow revealed no pulmonic valvular regurgitation. There is no pulmonic valvular stenosis. GREAT VESSELS The aortic root is normal in size. The ascending aorta is normal in size. The pulmonary artery is nor mal. The IVC is mildly dilated with blunted inspiratory response. PERICARDIAL EFFUSION There is no pleural effusion. There is no evidence of significant pericardial effusion. Critical Notification Critical Value: No <Conclusion> The left ventricle is normal size. LV systolic function is moderately impaired. The Ejection Fraction is 35-40%. There is global hypokinesis of the left ventricle. Doppler and Color Flow revealed no significant aortic regurgitation. There is no significant aortic valvular stenosis. Doppler and Color-flow revealed mild to moderate mitral regurgitation. Doppler and Color Flow revealed trace tricuspid regurgitation. Signed by : Soy Gregory MD Electronically Approved : 09/30/2021 15:02:46
--- NOTE | 2021-09-30 15:47 | NUR ---
SS following for discharge planning. SS reviewed pt chart and discussed with pt RN. Pt is from home and is currently requiring oxygen at two liters nasal canula. COVID19 negative. Cardiology following. Pt on IV Rocephin and IV Azithromycin. SS will continue to follow for discharge planning.
[2021-09-30] MEDS: INSULIN LISPRO 300 UNITS/3 ML VIAL. SQ SCH (16:30)
[2021-09-30] MEDS: ALBUTEROL SULFATE 8GM INHALER. INH SCH ×2 (17:07→21:40)
[2021-09-30 19:00] VITALS: BP 131/58
[2021-09-30] MEDS ORDERED: FUROSEMIDE 40 MG TABLET. PO SCH (21:00)
[2021-09-30] MEDS: MONTELUKAST SODIUM 10 MG TABLET. PO SCH (21:28)
[2021-09-30] MEDS: ALLOPURINOL 100 MG TABLET. PO SCH (21:28)
[2021-09-30] MEDS ORDERED: ACETAMINOPHEN 325 MG TABLET. PO PRN (21:30)
[2021-09-30 23:00] VITALS: BP 138/59
[2021-10-01 03:00] VITALS: BP 136/69
[2021-10-01] MEDS: ERYTHROMYCIN 0.5% OPHTH OINTMENT 1GM TUBE. OU SCH ×6 (05:03→20:00)
[2021-10-01 07:00] VITALS: BP 136/77
[2021-10-01] MEDS: INSULIN LISPRO 300 UNITS/3 ML VIAL. SQ SCH ×2 (07:30→16:30)
[2021-10-01 08:19] LABS: BASO % 0 % (0-3); EOS # 0.3 x10^3/uL (0.0-0.7); EOS % 3 % (0-3); HEMATOCRIT 33.6 % (36.0-47.0); HEMOGLOBIN 10.9 g/dL (12.0-15.5); LYMPH # 1.2 x10^3/uL (1.0-4.8); LYMPH % 9 % (24-48); MEAN CORPUSCULAR HEMOGLOBIN 31 pg (25-35); MEAN CORPUSCULAR HGB CONC 32 g/dL (31-37); MEAN CORPUSCULAR VOLUME 96 fL (79-100); MONO # 0.8 x10^3/uL (0.0-1.1); MONO % 6 % (0-9); NEUT % 81 % (31-73); PLATELET COUNT 198 x10^3/uL (140-400); RED CELL DISTRIBUTION WIDTH 14.9 % (11.5-14.5); WHITE BLOOD COUNT 12.3 x10^3/uL (4.0-11.0)
[2021-10-01] MEDS: INSULIN NPH/REG HUM 70/30 300 UNITS/3 ML VIAL. SQ SCH ×2 (08:24→21:00)
[2021-10-01] MEDS: ALBUTEROL SULFATE 8GM INHALER. INH SCH (08:27)
[2021-10-01] MEDS: AZITHROMYCIN 500 MG in IV DEXTROSE 5% 250 ML IV SCH (08:27)
[2021-10-01] MEDS: GABAPENTIN 100 MG CAPSULE. PO SCH ×3 (08:27→22:05)
[2021-10-01] MEDS: BENZONATATE 100 MG CAPSULE. PO SCH ×3 (08:27→22:05)
[2021-10-01] MEDS: SPIRONOLACTONE 25 MG TABLET PO SCH (08:28)
[2021-10-01] MEDS: CARVEDILOL 6.25 MG TABLET. PO SCH ×2 (08:28→17:31)
[2021-10-01] MEDS: HEPARIN for SUB-Q USE 5,000 UNIT/ML VIAL. SQ SCH ×2 (08:29→22:14)
[2021-10-01] MEDS: cefTRIAXone IV Push 1 GM VIAL. IVP SCH (08:32)
[2021-10-01] MEDS: FUROSEMIDE 40 MG TABLET. PO SCH (08:40)
--- NOTE | 2021-10-01 09:36 | PDOC ---
PROGRESS NOTES Date of Service: DATE: 10/01/21 TIME: 09:36 Subjective Subjective c/o cough, dyspnea improved Objective Objective Vital Signs Date Time Temp Pulse Resp B/P (MAP) Pulse Ox O2 Delivery O2 Flow Rate FiO2 10/01/21 08:28 86 136/69 10/01/21 07:00 98.6 18 92 Nasal Cannula 2.0 98.6 Intake and Output 10/01/21 07:00 Intake Total 615 ml Output Total 300 ml Balance 315 ml Intake Oral 365 ml IV Total 250 ml Output Urine Total 300 ml # Voids 2 Physical Exam Abdomen: Soft, No tenderness, Other (obese) Heart: Regular rate (SR), Other (distant heart sounds) General: Alert, Cooperative, No acute distress, Other (disheveld appearance) HEENT: Atraumatic, Mucous membr. moist/pink, Other (nasal congestion) Lungs: Other (diminished with upper wheeze) Neuro: Normal speech, Sensation intact Psych/Mental Status: Mental status NL, Other (flat affect) Skin: No breakdown, No significant lesion, Other (venous dermatitis) Assessment Assessment 1. AECOPD: Treat per pulmonary team. 2. Acute bronchitis/URI: Continue intravenous antibiotics per IM. 3. PUI: COVID test negative. 4. HTN: Well-controlled 5. DM2: Treat per IM 6. CKD3-4 7. Chronic systolic heart failure: 2D echo showed LVEF 35 to 40%. Plan ischemic evaluation as an outpatient. Continue beta-blockers. We will hold off on ACEI/ARB secondary to renal insufficiency and marginal blood pressure. Plan Plan of Care Problems Medical Problems: (1) Conjunctivitis Status: Acute (2) Short of breath on exertion Status: Acute Comment Review of Relevant I have reviewed the following items joni (where applicable) has been applied. Labs Laboratory Tests Test 09/30/21 12:04 09/30/21 17:00 09/30/21 19:37 10/01/21 07:52 Glucose (Fingerstick) 143 mg/dL (70-99) 133 mg/dL (70-99) 125 mg/dL (70-99) 143 mg/dL (70-99) Test 10/01/21 07:56 White Blood Count 12.3 x10^3/uL (4.0-11.0) Red Blood Count 3.50 x10^6/uL (3.50-5.40) Hemoglobin 10.9 g/dL (12.0-15.5) Hematocrit 33.6 % (36.0-47.0) Mean Corpuscular Volume 96 fL (79-100) Mean Corpuscular Hemoglobin 31 pg (25-35) Mean Corpuscular Hemoglobin Concent 32 g/dL (31-37) Red Cell Distribution Width 14.9 % (11.5-14.5) Platelet Count 198 x10^3/uL (140-400) Neutrophils (%) (Auto) 81 % (31-73) Lymphocytes (%) (Auto) 9 % (24-48) Monocytes (%) (Auto) 6 % (0-9) Eosinophils (%) (Auto) 3 % (0-3) Basophils (%) (Auto) 0 % (0-3) Neutrophils # (Auto) 10.0 x10^3/uL (1.8-7.7) Lymphocytes # (Auto) 1.2 x10^3/uL (1.0-4.8) Monocytes # (Auto) 0.8 x10^3/uL (0.0-1.1) Eosinophils # (Auto) 0.3 x10^3/uL (0.0-0.7) Basophils # (Auto) 0.0 x10^3/uL (0.0-0.2) Microbiology 09/29/21 Blood Culture - Preliminary, Resulted NO GROWTH AFTER 1 DAY Medications Current Medications Acetaminophen (Tylenol) 650 mg PRN Q6HRS PRN PO MILD PAIN / TEMP > 100.3'F; Start 09/30/21 at 21:30 Albuterol Sulfate (Ventolin Hfa) 2 puff RTQID INH Last administered on 10/01/21at 08:27; Start 09/30/21 at 16:00 Allopurinol (Zyloprim) 100 mg HS PO Last administered on 09/30/21at 21:28; Start 09/30/21 at 21:00 Azithromycin 500 mg/Dextrose 250 ml @ 250 mls/hr Q24H IV Last administered on 10/01/21at 08:27; Start 09/30/21 at 10:00 Benzonatate (Tessalon Perle) 100 mg AMQ466 PO Last administered on 10/01/21at 08:27; Start 09/30/21 at 14:00 Ceftriaxone Sodium (Rocephin) 1 gm Q24H IVP Last administered on 10/01/21at 08:32; Start 09/30/21 at 10:00 Furosemide (Lasix) 40 mg DAILY10 PO Last administered on 10/01/21at 08:40; Start 10/01/21 at 10:00 Furosemide (Lasix) 40 mg QHS PO ; Start 09/30/21 at 21:00; Stop 09/30/21 at 09:04; Status DC Guaifenesin (Mucinex) 600 mg BID PO Last administered on 10/01/21at 08:27; Start 09/30/21 at 21:00 Insulin Human Isoph/Insulin Regular (HumuLIN 70-30 VIAL) 12 units HS SQ Last administered on 09/30/21at 21:38; Start 09/30/21 at 21:00 Insulin Human Lispro (HumaLOG) 0-8 UNITS BIDBFRMEAL SQ ; Start 09/30/21 at 16:30 Montelukast Sodium (Singulair) 10 mg QHS PO Last administered on 09/30/21at 21:28; Start 09/30/21 at 21:00 Ondansetron HCl (Zofran) 4 mg PRN Q6HRS PRN IVP NAUSEA/VOMITING Last administered on 09/30/21at 13:56; Start 09/30/21 at 13:15 Potassium Chloride (Klor-Con) 20 meq 1X ONCE PO Last administered on 09/30/21at 13:57; Start 09/30/21 at 12:30; Stop 09/30/21 at 12:31; Status DC Vitals/I & O Vital Sign - Last 24 Hours 09/30/21 09/30/21 09/30/21 09/30/21 09:55 11:00 15:00 17:06 Temp 98.0 98.7 98.0 98.7 Pulse 75 87 85 85 Resp 22 24 B/P (MAP) 122/55 151/88 (109) 125/64 (84) 125/64 Pulse Ox 100 90 O2 Delivery Nasal Cannula Nasal Cannula O2 Flow Rate 2.0 2.0 09/30/21 09/30/21 09/30/21 10/01/21 19:00 20:00 23:00 03:00 Temp 101.2 100.4 98.2 101.2 100.4 98.2 Pulse 96 101 86 Resp 20 22 20 B/P (MAP) 131/58 (82) 138/59 (85) 136/69 (91) Pulse Ox 93 92 95 O2 Delivery Nasal Cannula Nasal Cannula Nasal Cannula Nasal Cannula O2 Flow Rate 2.0 2.0 2.0 2.0 10/01/21 10/01/21 07:00 08:28 Temp 98.6 98.6 Pulse 82 86 Resp 18 B/P (MAP) 136/77 (96) 136/69 Pulse Ox 92 O2 Delivery Nasal Cannula O2 Flow Rate 2.0 Intake and Output 09/30/21 09/30/21 10/01/21 15:00 23:00 07:00 Intake Total 240 ml 375 ml Output Total 200 ml 100 ml Balance 240 ml 175 ml -100 ml LUCIANA CARRILLO MD October 01, 2021 09:36
--- NOTE | 2021-10-01 09:39 | PDOC ---
IM PROGRESS NOTES- Subjective Subjective Complaints of cough, congestion and fever. Objective Vitals/I&O Vital Signs Date Time Temp Pulse Resp B/P (MAP) Pulse Ox O2 Delivery O2 Flow Rate FiO2 10/01/21 08:28 86 136/69 10/01/21 07:00 98.6 18 92 Nasal Cannula 2.0 98.6 I & O 09/30/21 09/30/21 10/01/21 15:00 23:00 07:00 Intake Total 240 ml 375 ml Output Total 200 ml 100 ml Balance 240 ml 175 ml -100 ml Physical Exam Physical Exam General Appearance - alert and in mild distress. Acutely ill. Chest - decreased breath sounds at bases Heart - S1 and S2 normal Abdomen - soft, non tender Neurological - alert and oriented Musculoskeletal - generalized weakness Extremities -edema of lower extremities with stasis dermatitis. Labs Laboratory Tests Test 09/30/21 12:04 09/30/21 17:00 09/30/21 19:37 10/01/21 07:52 Glucose (Fingerstick) 143 mg/dL (70-99) H 133 mg/dL (70-99) H 125 mg/dL (70-99) H 143 mg/dL (70-99) H Test 10/01/21 07:56 White Blood Count 12.3 x10^3/uL (4.0-11.0) H Red Blood Count 3.50 x10^6/uL (3.50-5.40) Hemoglobin 10.9 g/dL (12.0-15.5) L Hematocrit 33.6 % (36.0-47.0) L Mean Corpuscular Volume 96 fL (79-100) Mean Corpuscular Hemoglobin 31 pg (25-35) Mean Corpuscular Hemoglobin Concent 32 g/dL (31-37) Red Cell Distribution Width 14.9 % (11.5-14.5) H Platelet Count 198 x10^3/uL (140-400) Neutrophils (%) (Auto) 81 % (31-73) H Lymphocytes (%) (Auto) 9 % (24-48) L Monocytes (%) (Auto) 6 % (0-9) Eosinophils (%) (Auto) 3 % (0-3) Basophils (%) (Auto) 0 % (0-3) Neutrophils # (Auto) 10.0 x10^3/uL (1.8-7.7) H Lymphocytes # (Auto) 1.2 x10^3/uL (1.0-4.8) Monocytes # (Auto) 0.8 x10^3/uL (0.0-1.1) Eosinophils # (Auto) 0.3 x10^3/uL (0.0-0.7) Basophils # (Auto) 0.0 x10^3/uL (0.0-0.2) Laboratory Tests 10/01/21 07:56 Meds Current Medications Medications (Trade) Dose Ordered Sig/Magali Route PRN Reason Start Time Stop Time Status Last Admin Dose Admin Allopurinol (Zyloprim) 100 mg HS PO 09/30/21 21:00 09/30/21 21:28 Montelukast Sodium (Singulair) 10 mg QHS PO 09/30/21 21:00 09/30/21 21:28 Furosemide (Lasix) 40 mg DAILY10 PO 10/01/21 10:00 10/01/21 08:40 Insulin Human Isoph/Insulin Regular (HumuLIN 70-30 VIAL) 12 units HS SQ 09/30/21 21:00 09/30/21 21:38 Ceftriaxone Sodium (Rocephin) 1 gm Q24H IVP 09/30/21 10:00 10/01/21 08:32 Azithromycin 500 mg/Dextrose 250 ml @ 250 mls/hr Q24H IV 09/30/21 10:00 10/01/21 08:27 Potassium Chloride (Klor-Con) 20 meq 1X ONCE PO 09/30/21 12:30 09/30/21 12:31 DC 09/30/21 13:57 Ondansetron HCl (Zofran) 4 mg PRN Q6HRS PRN IVP NAUSEA/VOMITING 09/30/21 13:15 09/30/21 13:56 Guaifenesin (Mucinex) 600 mg BID PO 09/30/21 21:00 10/01/21 08:27 Benzonatate (Tessalon Perle) 100 mg [id number] PO 09/30/21 14:00 10/01/21 08:27 Albuterol Sulfate (Ventolin Hfa) 2 puff RTQID INH 09/30/21 16:00 10/01/21 08:27 Assessment Assessment 1. Acute bronchitis with exacerbation of chronic obstructive pulmonary disease. 2. Rule out COVID-19 infection. 3. Morbid obesity. 4. Diabetes mellitus type 2 with neuropathy. 5. Osteoarthritis. 6. Chronic lumbar spinal stenosis. 7. Fibromyalgia. 8. Gout. 9. Chronic kidney disease stage III to IV. Her baseline creatinine is 2.1. PLAN: 1. Acute bronchitis with possible pneumonia. I will start her on IV Rocephin and Zithromax. Consult Dr. Mckeon for pulmonary evaluation and management. . Recheck labs in a.m. influenza A, influenza B, SARS-CoV-2 rapid antigen test as well as PCR is negative. Fever is getting worse. Consult Dr. Pagan for infectious disease evaluation and management. Add DuoNeb and budesonide breathing treatment. 2. Acute on chronic diastolic and systolic congestive heart failure. Restart p.o. Lasix tomorrow. Consult Dr. Castillo for cardiology evaluation and management. Echocardiogram shows ejection fraction of 35 to 40% with diastolic dysfunction. Monitor electrolytes and renal function. Echocardiogram The left ventricle is normal size. LV systolic function is moderately impaired. The Ejection Fraction is 35-40%. There is global hypokinesis of the left ventricle. Doppler and Color Flow revealed no significant aortic regurgitation. There is no significant aortic valvular stenosis. Doppler and Color-flow revealed mild to moderate mitral regurgitation. Doppler and Color Flow revealed trace tricuspid regurgitation. 3. Diabetic neuropathy. She takes 14 units of Novolin NPH 70/30 in the morning and 14 units at bedtime. She takes 10 units of NovoLog insulin in the morning and 10 units at supper. I will decrease the dose of insulin and use sliding scale insulin. Monitor blood sugars. 4. Acute hypoxic respiratory failure. Continue oxygen by nasal cannula. For details, please refer to the orders. Monitor closely. Start subcutaneous heparin for DVT prophylaxis. Prognosis of this patient is poor due to her multiple medical problems. Plan Plan For more details regarding further plans, please refer to the orders. Justifications for Admission Other Justification IWONA GALLOWAY MD October 01, 2021 09:39
[2021-10-01] MEDS ORDERED: POTASSIUM CHLORIDE 20 MEQ TABLET.ER. PO ONE (10:45)
[2021-10-01 11:00] VITALS: BP 118/43
--- NOTE | 2021-10-01 11:38 | CONS ---
DATE OF CONSULTATION: 10/01/2021 PULMONARY CONSULTATION ATTENDING PHYSICIAN: Tona Harrell MD REASON FOR CONSULTATION: Fever, cough. HISTORY OF PRESENT ILLNESS: The patient is a 75-year-old morbidly obese female with a BMI of 53. The patient denies any history of COPD or tobaccoism. She was brought into the hospital with complaint of a cough and chest congestion. She has some dyspnea and fever and chills. The patient was noted to have a fever of 101.2. The patient's chest x-ray was reviewed on admission and no definite consolidation seen. She appears pretty weak and lethargic. Blood cultures have been drawn and so far no growth. The patient denies any significant tobaccoism. I have been asked to see her for further evaluation. So far COVID serology is negative by PCR. Influenza is negative as well. PAST MEDICAL HISTORY: Significant for history of morbid obesity, history of hypertension, hyperlipidemia, questionable COPD. She denies tobaccoism. History of CKD. PAST SURGICAL HISTORY: Total knee replacement and hysterectomy. FAMILY HISTORY: As discussed in H and P. SOCIAL HISTORY: Quit tobacco in 1983 minimal tobaccoism if any. ALLERGIES: None. MEDICATIONS: Reviewed as listed in the MRAD including DuoNebs and Pulmicort. She is currently on Rocephin. REVIEW OF SYSTEMS: Unable to obtain in detail, but pertinent positives discussed in my history of present illness. PHYSICAL EXAMINATION: VITAL SIGNS: Reviewed. T-max of 101.2, pulse ox 95% on 2 liters. LUNGS: With anterior rhonchi and occasional wheezing. CARDIOVASCULAR: Regular rate. ABDOMEN: Soft, obese. EXTREMITIES: With lymphedema. LABORATORY DATA: Labs are reviewed. Her white cell count 12.3, hemoglobin 10.9 and platelets are 198. BUN 44, creatinine 2.3. IMPRESSION: 1. Acute hypoxic respiratory failure secondary to fever. 2. Fever, no obvious source. She does have a cough and chest congestion. Chest x-ray without any definite consolidation. We will obtain a noncontrast CT chest to rule out a definite pneumonia. One should look for other sources of fever as well. 3. Underlying obesity and suspected sleep apnea. 4. Mild rhonchi and bronchospasm related to respiratory tract infection. 5. D-dimer only 0.5. No further need for thromboembolic workup. RECOMMENDATIONS: 1. Continue present oxygen to keep saturation 92% and above. 2. Continue with Rocephin and azithromycin. 3. Monitor the fever curve. If no response, consider ID consult. 4. Noncontrast CT chest to rule out definite pneumonia. 5. Follow blood cultures. 6. Continue present nebulizer with DuoNebs and Pulmicort. 7. Discussed with RN. We will follow along with you. Continue DVT prophylaxis with subcutaneous heparin. [facility] [place]: Emily TID: [id number]
[2021-10-01] MEDS: BUDESONIDE 0.5 MG/2 ML NEBU. NEB SCH ×2 (12:00→21:15)
[2021-10-01] MEDS: IPRATRPIUM/ALBUTEROL 0.5/2.5MG 3 ML NEBU. NEB SCH ×3 (12:00→21:15)
[2021-10-01 14:56] VITALS: BP 114/58
--- NOTE | 2021-10-01 17:07 | RAD ---
CT of the chest without contrast. HISTORY: Fever, evaluate for pneumonia CT scan of the chest was done without contrast. There is no mediastinal adenopathy. There is no pleur al effusion. There is artifact secondary to the patient's size. Visualized portions of the liver and spleen are unremarkable. Gallbladder is somewhat distended. There is respiratory motion artifact. The re are mild groundglass infiltrates or atelectasis in the upper lobes. A rounded pulmonary nodule or infiltrate in the lateral right upper lobe, follow-up study could be of benefit. There is narrowing o f the trachea and of the mainstem bronchi as well as at the bronchus at the hilar regions cartilage i ssues of the trachea can have this pattern. There is mild atelectasis in the right lower lobe. There is atelectasis or infiltrate in the posterior left lower lobe. IMPRESSION: 1. Mild left lower lobe infiltrates pneumonia is possible. 2. Groundglass atelectasis or infiltrates in other lobes. 3. Small rounded infiltrates or nodules in the right upper lobe follow-up would be of benefit. 4. Limitations due to artifact from the patient's size and restaurant motion. 5. Distended gallbladder. 6. Narrowing of the trachea and mainstem bronchi. PQRS Compliance Statement: One or more of the following individualized dose reduction techniques were utilized for this examinat ion: 1. Automated exposure control 2. Adjustment of the mA and/or kV according to patient size 3. Use of iterative reconstruction technique Electronically signed by: Roosevelt Perea MD (10/01/2021 5:04 PM) [id number]
[2021-10-01 19:00] VITALS: BP 114/38
[2021-10-01] MEDS: ALLOPURINOL 100 MG TABLET. PO SCH (22:05)
[2021-10-01] MEDS: MONTELUKAST SODIUM 10 MG TABLET. PO SCH (22:05)
[2021-10-01] MEDS: ACETAMINOPHEN/CODEINE 300/30MG TABLET. PO PRN (22:12)
[2021-10-01 23:02] VITALS: BP 116/77
[2021-10-02 03:11] VITALS: BP 127/55
[2021-10-02] MEDS: ERYTHROMYCIN 0.5% OPHTH OINTMENT 1GM TUBE. OU SCH ×6 (03:23→21:30)
[2021-10-02 04:56] LABS: CALCIUM 8.1 mg/dL (8.5-10.1); GFR 15.1; POTASSIUM 4.5 mmol/L (3.5-5.1)
[2021-10-02 04:58] LABS: BASO % 0 % (0-3); EOS # 0.3 x10^3/uL (0.0-0.7); EOS % 4 % (0-3); HEMATOCRIT 30.1 % (36.0-47.0); LYMPH # 1.2 x10^3/uL (1.0-4.8); LYMPH % 12 % (24-48); MEAN CORPUSCULAR HEMOGLOBIN 32 pg (25-35); MEAN CORPUSCULAR HGB CONC 33 g/dL (31-37); MEAN CORPUSCULAR VOLUME 96 fL (79-100); MONO # 0.6 x10^3/uL (0.0-1.1); MONO % 6 % (0-9); NEUT # 7.5 x10^3/uL (1.8-7.7); NEUT % 78 % (31-73); PLATELET COUNT 194 x10^3/uL (140-400); RED BLOOD COUNT 3.16 x10^6/uL (3.50-5.40); RED CELL DISTRIBUTION WIDTH 14.7 % (11.5-14.5); WHITE BLOOD COUNT 9.7 x10^3/uL (4.0-11.0)
[2021-10-02 07:00] VITALS: BP 133/59
[2021-10-02] MEDS: INSULIN LISPRO 300 UNITS/3 ML VIAL. SQ SCH ×2 (07:30→16:30)
[2021-10-02] MEDS: BUDESONIDE 0.5 MG/2 ML NEBU. NEB SCH ×2 (08:00→19:47)
[2021-10-02] MEDS: CARVEDILOL 6.25 MG TABLET. PO SCH ×2 (08:49→17:25)
[2021-10-02] MEDS: GABAPENTIN 100 MG CAPSULE. PO SCH ×3 (08:49→21:30)
[2021-10-02] MEDS: BENZONATATE 100 MG CAPSULE. PO SCH ×3 (08:49→21:31)
[2021-10-02] MEDS: FUROSEMIDE 40 MG TABLET. PO SCH (08:49)
[2021-10-02] MEDS: SPIRONOLACTONE 25 MG TABLET PO SCH (08:49)
[2021-10-02] MEDS: HEPARIN for SUB-Q USE 5,000 UNIT/ML VIAL. SQ SCH ×2 (09:00→22:05)
[2021-10-02] MEDS: INSULIN NPH/REG HUM 70/30 300 UNITS/3 ML VIAL. SQ SCH ×2 (09:00→22:05)
--- NOTE | 2021-10-02 09:29 | PDOC ---
IM PROGRESS NOTES- Subjective Subjective Complaints of cough, congestion and fever. She is feeling worse. Cough is much worse. Objective Vitals/I&O Vital Signs Date Time Temp Pulse Resp B/P (MAP) Pulse Ox O2 Delivery O2 Flow Rate FiO2 10/02/21 08:49 76 133/59 10/02/21 07:00 98.1 18 95 98.1 10/02/21 03:11 Nasal Cannula 10/01/21 21:20 2.0 I & O 10/01/21 10/01/21 10/02/21 15:00 23:00 07:00 Intake Total 400 ml 250 ml Output Total 100 ml 100 ml Balance 400 ml 150 ml -100 ml Physical Exam Physical Exam General Appearance - alert and in no distress Chest - decreased breath sounds at bases Heart - S1 and S2 normal Abdomen - soft, non tender Neurological - alert and oriented Musculoskeletal - generalized weakness Extremities - no edema Labs Laboratory Tests Test 10/01/21 12:08 10/01/21 17:17 10/01/21 20:44 10/02/21 04:00 Glucose (Fingerstick) 143 mg/dL (70-99) H 126 mg/dL (70-99) H 131 mg/dL (70-99) H White Blood Count 9.7 x10^3/uL (4.0-11.0) Red Blood Count 3.16 x10^6/uL (3.50-5.40) L Hemoglobin 10.0 g/dL (12.0-15.5) L Hematocrit 30.1 % (36.0-47.0) L Mean Corpuscular Volume 96 fL (79-100) Mean Corpuscular Hemoglobin 32 pg (25-35) Mean Corpuscular Hemoglobin Concent 33 g/dL (31-37) Red Cell Distribution Width 14.7 % (11.5-14.5) H Platelet Count 194 x10^3/uL (140-400) Neutrophils (%) (Auto) 78 % (31-73) H Lymphocytes (%) (Auto) 12 % (24-48) L Monocytes (%) (Auto) 6 % (0-9) Eosinophils (%) (Auto) 4 % (0-3) H Basophils (%) (Auto) 0 % (0-3) Neutrophils # (Auto) 7.5 x10^3/uL (1.8-7.7) Lymphocytes # (Auto) 1.2 x10^3/uL (1.0-4.8) Monocytes # (Auto) 0.6 x10^3/uL (0.0-1.1) Eosinophils # (Auto) 0.3 x10^3/uL (0.0-0.7) Basophils # (Auto) 0.0 x10^3/uL (0.0-0.2) Sodium Level 140 mmol/L (136-145) Potassium Level 4.5 mmol/L (3.5-5.1) Chloride Level 103 mmol/L (98-107) Carbon Dioxide Level 29 mmol/L (21-32) Anion Gap 8 (6-14) Blood Urea Nitrogen 60 mg/dL (7-20) H Creatinine 3.0 mg/dL (0.6-1.0) H Estimated GFR (Cockcroft-Gault) 15.1 Glucose Level 128 mg/dL (70-99) H Calcium Level 8.1 mg/dL (8.5-10.1) L Test 10/02/21 07:18 Glucose (Fingerstick) 109 mg/dL (70-99) H Laboratory Tests 10/02/21 04:00 Laboratory Tests 10/02/21 04:00 Meds Current Medications Medications (Trade) Dose Ordered Sig/Magali Route PRN Reason Start Time Stop Time Status Last Admin Dose Admin Furosemide (Lasix) 40 mg DAILY10 PO 10/01/21 10:00 10/02/21 08:49 Albuterol/ Ipratropium (Duoneb) 3 ml RTQID NEB 10/01/21 12:00 10/01/21 21:15 Budesonide (Pulmicort) 0.5 mg RTBID NEB 10/01/21 12:00 10/01/21 21:15 Potassium Chloride (Klor-Con) 20 meq 1X ONCE PO 10/01/21 10:45 10/01/21 10:46 DC 10/01/21 12:36 Assessment Assessment 1. Acute bronchitis with exacerbation of chronic obstructive pulmonary disease. 2. Rule out COVID-19 infection. 3. Morbid obesity. 4. Diabetes mellitus type 2 with neuropathy. 5. Osteoarthritis. 6. Chronic lumbar spinal stenosis. 7. Fibromyalgia. 8. Gout. 9. Chronic kidney disease stage III to IV. Her baseline creatinine is 2.1. PLAN: 1. Acute bronchitis with pneumonia. I will start her on IV Rocephin and Zithromax. Consult Dr. Mckeon for pulmonary evaluation and management. . in a.m. influenza A, influenza B, SARS-CoV-2 rapid antigen test as well as PCR is negative. Leukocytosis is improving but fever is persistent. Consult Dr. Pagan for infectious disease evaluation and management. Add DuoNeb and budesonide breathing treatment. CT scan of chest without contrast on October 01, 2021 1. Mild left lower lobe infiltrates pneumonia is possible. 2. Groundglass atelectasis or infiltrates in other lobes. 3. Small rounded infiltrates or nodules in the right upper lobe follow-up would be of benefit. 4. Limitations due to artifact from the patient's size and restaurant motion. 5. Distended gallbladder. 6. Narrowing of the trachea and mainstem bronchi. 2. Acute on chronic diastolic and systolic congestive heart failure. Restart p.o. Lasix tomorrow. Consult Dr. Castillo for cardiology evaluation and management. Echocardiogram shows ejection fraction of 35 to 40% with diastolic dysfunction. Monitor electrolytes and renal function. Echocardiogram The left ventricle is normal size. LV systolic function is moderately impaired. The Ejection Fraction is 35-40%. There is global hypokinesis of the left ventricle. Doppler and Color Flow revealed no significant aortic regurgitation. There is no significant aortic valvular stenosis. Doppler and Color-flow revealed mild to moderate mitral regurgitation. Doppler and Color Flow revealed trace tricuspid regurgitation. 3. Diabetic neuropathy. She takes 14 units of Novolin NPH 70/30 in the morning and 14 units at bedtime. She takes 10 units of NovoLog insulin in the morning and 10 units at supper. I will decrease the dose of insulin and use sliding scale insulin. Monitor blood sugars. 4. Acute hypoxic respiratory failure. Continue oxygen by nasal cannula. 5. Exacerbation of COPD. IV Solu-Medrol x1. For details, please refer to the orders. Monitor closely. Start subcutaneous heparin for DVT prophylaxis. Prognosis of this patient is poor due to her multiple medical problems. Plan Plan For more details regarding further plans, please refer to the orders. Justifications for Admission Other Justification IWONA GALLOWAY MD October 02, 2021 09:29
[2021-10-02] MEDS: cefTRIAXone IV Push 1 GM VIAL. IVP SCH (09:33)
[2021-10-02] MEDS: AZITHROMYCIN 500 MG in IV DEXTROSE 5% 250 ML IV SCH (09:33)
--- NOTE | 2021-10-02 09:40 | PDOC ---
PROGRESS NOTES Date of Service: DATE: 10/02/21 TIME: 09:37 Subjective Subjective Remains febrile and complaining of cough Objective Objective Vital Signs Date Time Temp Pulse Resp B/P (MAP) Pulse Ox O2 Delivery O2 Flow Rate FiO2 10/02/21 08:49 76 133/59 10/02/21 07:00 98.1 18 95 98.1 10/02/21 03:11 Nasal Cannula 10/01/21 21:20 2.0 Intake and Output 10/02/21 07:00 Intake Total 650 ml Output Total 200 ml Balance 450 ml Intake Oral 400 ml IV Total 250 ml Output Urine Total 200 ml # Voids 2 Physical Exam Abdomen: Soft, No tenderness, Other (obese) Heart: Regular rate (SR), Other (distant heart sounds) General: Alert, Cooperative, No acute distress, Other (disheveld appearance) HEENT: Atraumatic, Mucous membr. moist/pink, Other (nasal congestion) Lungs: Other (diminished with upper wheeze) Neuro: Normal speech, Sensation intact Psych/Mental Status: Mental status NL, Other (flat affect) Skin: No breakdown, No significant lesion, Other (venous dermatitis) Assessment Assessment 1. AECOPD: Treat per pulmonary team. 2. Acute bronchitis/URI: Continue intravenous antibiotics per IM. 3. PUI: COVID test negative. 4. HTN: Well-controlled 5. DM2: Treat per IM 6. CKD3-4 7. Chronic systolic heart failure: 2D echo showed LVEF 35 to 40%. Plan ischemic evaluation as an outpatient. Continue beta-blockers. We will hold off on ACEI/ARB secondary to renal insufficiency and marginal blood pressure. 8. Fever with CT chest showing possible pneumonia. Pulmonary team following. Plan Plan of Care Problems Medical Problems: (1) Conjunctivitis Status: Acute (2) Short of breath on exertion Status: Acute Comment Review of Relevant I have reviewed the following items joni (where applicable) has been applied. Labs Laboratory Tests Test 10/01/21 12:08 10/01/21 17:17 10/01/21 20:44 10/02/21 04:00 Glucose (Fingerstick) 143 mg/dL (70-99) 126 mg/dL (70-99) 131 mg/dL (70-99) White Blood Count 9.7 x10^3/uL (4.0-11.0) Red Blood Count 3.16 x10^6/uL (3.50-5.40) Hemoglobin 10.0 g/dL (12.0-15.5) Hematocrit 30.1 % (36.0-47.0) Mean Corpuscular Volume 96 fL (79-100) Mean Corpuscular Hemoglobin 32 pg (25-35) Mean Corpuscular Hemoglobin Concent 33 g/dL (31-37) Red Cell Distribution Width 14.7 % (11.5-14.5) Platelet Count 194 x10^3/uL (140-400) Neutrophils (%) (Auto) 78 % (31-73) Lymphocytes (%) (Auto) 12 % (24-48) Monocytes (%) (Auto) 6 % (0-9) Eosinophils (%) (Auto) 4 % (0-3) Basophils (%) (Auto) 0 % (0-3) Neutrophils # (Auto) 7.5 x10^3/uL (1.8-7.7) Lymphocytes # (Auto) 1.2 x10^3/uL (1.0-4.8) Monocytes # (Auto) 0.6 x10^3/uL (0.0-1.1) Eosinophils # (Auto) 0.3 x10^3/uL (0.0-0.7) Basophils # (Auto) 0.0 x10^3/uL (0.0-0.2) Sodium Level 140 mmol/L (136-145) Potassium Level 4.5 mmol/L (3.5-5.1) Chloride Level 103 mmol/L (98-107) Carbon Dioxide Level 29 mmol/L (21-32) Anion Gap 8 (6-14) Blood Urea Nitrogen 60 mg/dL (7-20) Creatinine 3.0 mg/dL (0.6-1.0) Estimated GFR (Cockcroft-Gault) 15.1 Glucose Level 128 mg/dL (70-99) Calcium Level 8.1 mg/dL (8.5-10.1) Test 10/02/21 07:18 Glucose (Fingerstick) 109 mg/dL (70-99) Microbiology 09/29/21 Blood Culture - Preliminary, Resulted NO GROWTH AFTER 2 DAYS Medications Current Medications Albuterol/ Ipratropium (Duoneb) 3 ml RTQID NEB Last administered on 10/01/21at 21:15; Start 10/01/21 at 12:00 Budesonide (Pulmicort) 0.5 mg RTBID NEB Last administered on 10/01/21at 21:15; Start 10/01/21 at 12:00 Furosemide (Lasix) 40 mg DAILY10 PO Last administered on 10/02/21at 08:49; S tart 10/01/21 at 10:00 Potassium Chloride (Klor-Con) 20 meq 1X ONCE PO Last administered on 10/01/21at 12:36; Start 10/01/21 at 10:45; Stop 10/01/21 at 10:46; Status DC Vitals/I & O Vital Sign - Last 24 Hours 10/01/21 10/01/21 10/01/21 10/01/21 11:00 11:20 14:56 15:45 Temp 98.4 97.8 98.4 97.8 Pulse 81 68 Resp 20 20 B/P (MAP) 118/43 (68) 114/58 (76) Pulse Ox 92 96 97 O2 Delivery Nasal Cannula Nasal Cannula Nasal Cannula Nasal Cannula O2 Flow Rate 2.0 2.0 2.0 2.0 10/01/21 10/01/21 10/01/21 10/01/21 17:31 19:00 19:26 21:15 Temp 98.7 98.7 Pulse 68 73 Resp 20 B/P (MAP) 114/58 114/38 (63) Pulse Ox 96 97 O2 Delivery Nasal Cannula Nasal Cannula Nasal Cannula O2 Flow Rate 2.0 2.0 10/01/21 10/01/21 10/02/21 10/02/21 21:20 23:02 03:11 07:00 Temp 98.2 100.4 98.1 98.2 100.4 98.1 Pulse 77 78 76 Resp 20 20 18 B/P (MAP) 116/77 (90) 127/55 (79) 133/59 (83) Pulse Ox 97 95 93 95 O2 Delivery Nasal Cannula Nasal Cannula Nasal Cannula O2 Flow Rate 2.0 10/02/21 08:49 Pulse 76 B/P (MAP) 133/59 Intake and Output 10/01/21 10/01/21 10/02/21 15:00 23:00 07:00 Intake Total 400 ml 250 ml Output Total 100 ml 100 ml Balance 400 ml 150 ml -100 ml LUCIANA CARRILLO MD October 02, 2021 09:40
[2021-10-02 11:00] VITALS: BP 135/60
[2021-10-02] MEDS ORDERED: methylPREDNISolone SOD SUCC PF 40 MG/ML VIAL. IV ONE (11:00)
--- NOTE | 2021-10-02 11:21 | PDOC ---
PULMONARY PROGRESS NOTES DATE: 10/02/21 TIME: 11:19 Subjective More awake. Feels slightly better. Less cough. Vitals Vital Signs Date Time Temp Pulse Resp B/P (MAP) Pulse Ox O2 Delivery O2 Flow Rate FiO2 10/02/21 08:49 76 133/59 10/02/21 08:15 Nasal Cannula 2.0 10/02/21 07:00 98.1 18 95 98.1 General: Alert, No acute distress Lungs: Clear Cardiovascular: S1 Abdomen: Soft Neuro Exam: Alert Extremities: Other (Lower extremity lymphedema) Skin: Warm Labs Laboratory Tests Test 09/30/21 12:04 09/30/21 17:00 09/30/21 19:37 10/01/21 07:52 Glucose (Fingerstick) 143 mg/dL (70-99) 133 mg/dL (70-99) 125 mg/dL (70-99) 143 mg/dL (70-99) Test 10/01/21 07:56 10/01/21 12:08 10/01/21 17:17 10/01/21 20:44 White Blood Count 12.3 x10^3/uL (4.0-11.0) Red Blood Count 3.50 x10^6/uL (3.50-5.40) Hemoglobin 10.9 g/dL (12.0-15.5) Hematocrit 33.6 % (36.0-47.0) Mean Corpuscular Volume 96 fL (79-100) Mean Corpuscular Hemoglobin 31 pg (25-35) Mean Corpuscular Hemoglobin Concent 32 g/dL (31-37) Red Cell Distribution Width 14.9 % (11.5-14.5) Platelet Count 198 x10^3/uL (140-400) Neutrophils (%) (Auto) 81 % (31-73) Lymphocytes (%) (Auto) 9 % (24-48) Monocytes (%) (Auto) 6 % (0-9) Eosinophils (%) (Auto) 3 % (0-3) Basophils (%) (Auto) 0 % (0-3) Neutrophils # (Auto) 10.0 x10^3/uL (1.8-7.7) Lymphocytes # (Auto) 1.2 x10^3/uL (1.0-4.8) Monocytes # (Auto) 0.8 x10^3/uL (0.0-1.1) Eosinophils # (Auto) 0.3 x10^3/uL (0.0-0.7) Basophils # (Auto) 0.0 x10^3/uL (0.0-0.2) Glucose (Fingerstick) 143 mg/dL (70-99) 126 mg/dL (70-99) 131 mg/dL (70-99) Test 10/02/21 04:00 10/02/21 07:18 White Blood Count 9.7 x10^3/uL (4.0-11.0) Red Blood Count 3.16 x10^6/uL (3.50-5.40) Hemoglobin 10.0 g/dL (12.0-15.5) Hematocrit 30.1 % (36.0-47.0) Mean Corpuscular Volume 96 fL (79-100) Mean Corpuscular Hemoglobin 32 pg (25-35) Mean Corpuscular Hemoglobin Concent 33 g/dL (31-37) Red Cell Distribution Width 14.7 % (11.5-14.5) Platelet Count 194 x10^3/uL (140-400) Neutrophils (%) (Auto) 78 % (31-73) Lymphocytes (%) (Auto) 12 % (24-48) Monocytes (%) (Auto) 6 % (0-9) Eosinophils (%) (Auto) 4 % (0-3) Basophils (%) (Auto) 0 % (0-3) Neutrophils # (Auto) 7.5 x10^3/uL (1.8-7.7) Lymphocytes # (Auto) 1.2 x10^3/uL (1.0-4.8) Monocytes # (Auto) 0.6 x10^3/uL (0.0-1.1) Eosinophils # (Auto) 0.3 x10^3/uL (0.0-0.7) Basophils # (Auto) 0.0 x10^3/uL (0.0-0.2) Sodium Level 140 mmol/L (136-145) Potassium Level 4.5 mmol/L (3.5-5.1) Chloride Level 103 mmol/L (98-107) Carbon Dioxide Level 29 mmol/L (21-32) Anion Gap 8 (6-14) Blood Urea Nitrogen 60 mg/dL (7-20) Creatinine 3.0 mg/dL (0.6-1.0) Estimated GFR (Cockcroft-Gault) 15.1 Glucose Level 128 mg/dL (70-99) Calcium Level 8.1 mg/dL (8.5-10.1) Glucose (Fingerstick) 109 mg/dL (70-99) Laboratory Tests Test 10/01/21 12:08 10/01/21 17:17 10/01/21 20:44 10/02/21 04:00 Glucose (Fingerstick) 143 mg/dL (70-99) 126 mg/dL (70-99) 131 mg/dL (70-99) White Blood Count 9.7 x10^3/uL (4.0-11.0) Red Blood Count 3.16 x10^6/uL (3.50-5.40) Hemoglobin 10.0 g/dL (12.0-15.5) Hematocrit 30.1 % (36.0-47.0) Mean Corpuscular Volume 96 fL (79-100) Mean Corpuscular Hemoglobin 32 pg (25-35) Mean Corpuscular Hemoglobin Concent 33 g/dL (31-37) Red Cell Distribution Width 14.7 % (11.5-14.5) Platelet Count 194 x10^3/uL (140-400) Neutrophils (%) (Auto) 78 % (31-73) Lymphocytes (%) (Auto) 12 % (24-48) Monocytes (%) (Auto) 6 % (0-9) Eosinophils (%) (Auto) 4 % (0-3) Basophils (%) (Auto) 0 % (0-3) Neutrophils # (Auto) 7.5 x10^3/uL (1.8-7.7) Lymphocytes # (Auto) 1.2 x10^3/uL (1.0-4.8) Monocytes # (Auto) 0.6 x10^3/uL (0.0-1.1) Eosinophils # (Auto) 0.3 x10^3/uL (0.0-0.7) Basophils # (Auto) 0.0 x10^3/uL (0.0-0.2) Sodium Level 140 mmol/L (136-145) Potassium Level 4.5 mmol/L (3.5-5.1) Chloride Level 103 mmol/L (98-107) Carbon Dioxide Level 29 mmol/L (21-32) Anion Gap 8 (6-14) Blood Urea Nitrogen 60 mg/dL (7-20) Creatinine 3.0 mg/dL (0.6-1.0) Estimated GFR (Cockcroft-Gault) 15.1 Glucose Level 128 mg/dL (70-99) Calcium Level 8.1 mg/dL (8.5-10.1) Test 10/02/21 07:18 Glucose (Fingerstick) 109 mg/dL (70-99) Medications Active Scripts Medications Dose Route/Sig Max Daily Dose Days Date Category Augmentin 875-125 Tablet (Amoxicillin/Potassium Clav) 1 Each Tablet 1 Tab PO BID 10 02/24/19 Rx Famciclovir 500 Mg Tablet 500 Mg PO TID 7 08/11/17 Rx Zyrtec (Cetirizine Hcl) 10 Mg Tablet 10 Mg PO HS PRN 08/19/15 Rx Montelukast Sodium Tablet (Montelukast Sodium) 10 Mg Tablet 10 Mg PO QHS 08/19/15 Rx Gabapentin (Gabapentin) 100 Mg Capsule 100 Mg PO TID 08/19/15 Rx Diflucan (Fluconazole) 100 Mg Tablet 100 Mg PO DAILY 08/19/15 Rx Allopurinol 100 Mg Tablet 100 Mg PO HS 08/19/15 Rx Novolog (Insulin Aspart) 100 Unit/1 Ml Cartridge 10 Unit SQ BID 08/18/15 Reported Humulin 70-30 Vial (Hum Insulin Nph/Reg Insulin Hm) 100 Unit/1 Ml Vial 18 Unit SQ BID 08/18/15 Reported [Hydrocodone/Acetaminophen] 1 TAB Tablet 1 Tab PO PRN Q6HRS PRN 30 12/29/13 Rx Coreg (Carvedilol) 6.25 Mg Tablet 1 Tab PO BID 12/25/13 Reported Spironolactone 25 Mg Tablet 1 Tab PO DAILY 12/25/13 Reported Furosemide 40 Mg Tablet 40 Mg PO QHS 12/25/13 Reported Impression . 1. Acute hypoxic respiratory failure secondary to fever. 2. Fever, She does have a cough and chest congestion. Chest x-ray without any definite consolidation. 3. Underlying obesity and suspected sleep apnea. 4. Mild rhonchi and bronchospasm related to respiratory tract infection. 5. D-dimer only 0.5. No further need for thromboembolic workup. Plan . RECOMMENDATIONS: 1. Continue present oxygen to keep saturation 92% and above. 2. Continue with Rocephin and azithromycin. 3. Monitor the fever curve. Follow infectious disease recommendations. 4. Noncontrast CT chest reviewed. She does have left lower lobe pneumonitis. There are some mild groundglass patchy infiltrates suggestive of inflammatory etiology. 5. Follow blood cultures. Look for other sources of infection as well. 6. Continue present nebulizer with DuoNebs and Pulmicort. 7. Discussed with RN. We will follow along with you. Continue DVT prophylaxis with subcutaneous heparin. ELEANOR COSTELLO MD October 02, 2021 11:21
[2021-10-02] MEDS: IPRATRPIUM/ALBUTEROL 0.5/2.5MG 3 ML NEBU. NEB SCH ×4 (11:56→19:47)
[2021-10-02 15:00] VITALS: BP 134/76
[2021-10-02 19:00] VITALS: BP 133/57
[2021-10-02] MEDS: ALLOPURINOL 100 MG TABLET. PO SCH (21:30)
[2021-10-02] MEDS: MONTELUKAST SODIUM 10 MG TABLET. PO SCH (21:31)
[2021-10-02] MEDS: LACTOBACILLUS RHAMNOSUS GG 1 CAPSULE. PO SCH (21:31)
[2021-10-02] MEDS: ACETAMINOPHEN/CODEINE 300/30MG TABLET. PO PRN (21:55)
[2021-10-02 23:00] VITALS: BP 125/57
[2021-10-03 03:00] VITALS: BP 120/57
[2021-10-03] MEDS: ERYTHROMYCIN 0.5% OPHTH OINTMENT 1GM TUBE. OU SCH ×6 (03:20→20:21)
[2021-10-03 05:59] LABS: BASO % 0 % (0-3); EOS % 0 % (0-3); HEMOGLOBIN 10.3 g/dL (12.0-15.5); LYMPH # 0.4 x10^3/uL (1.0-4.8); LYMPH % 6 % (24-48); MEAN CORPUSCULAR HEMOGLOBIN 31 pg (25-35); MEAN CORPUSCULAR HGB CONC 33 g/dL (31-37); MEAN CORPUSCULAR VOLUME 94 fL (79-100); MONO # 0.1 x10^3/uL (0.0-1.1); MONO % 2 % (0-9); NEUT % 92 % (31-73); PLATELET COUNT 208 x10^3/uL (140-400); RED BLOOD COUNT 3.29 x10^6/uL (3.50-5.40); RED CELL DISTRIBUTION WIDTH 14.2 % (11.5-14.5); WHITE BLOOD COUNT 7.6 x10^3/uL (4.0-11.0)
[2021-10-03 06:02] LABS: ALBUMIN 2.3 g/dL (3.4-5.0); ALBUMIN/GLOBULIN RATIO 0.5 (1.0-1.7); CALCIUM 8.6 mg/dL (8.5-10.1); CREATININE 2.3 mg/dL (0.6-1.0); GFR 20.6; POTASSIUM 5.1 mmol/L (3.5-5.1); TOTAL BILIRUBIN 0.3 mg/dL (0.2-1.0); TOTAL PROTEIN 6.5 g/dL (6.4-8.2)
[2021-10-03 07:00] VITALS: BP 164/77
[2021-10-03] MEDS: IPRATRPIUM/ALBUTEROL 0.5/2.5MG 3 ML NEBU. NEB SCH ×4 (07:17→18:18)
[2021-10-03] MEDS: BUDESONIDE 0.5 MG/2 ML NEBU. NEB SCH ×2 (07:17→18:18)
[2021-10-03] MEDS: INSULIN LISPRO 300 UNITS/3 ML VIAL. SQ SCH ×3 (07:30→18:16)
[2021-10-03] MEDS: AZITHROMYCIN 500 MG in IV DEXTROSE 5% 250 ML IV SCH (09:28)
[2021-10-03] MEDS: cefTRIAXone IV Push 1 GM VIAL. IVP SCH (09:29)
[2021-10-03] MEDS: BENZONATATE 100 MG CAPSULE. PO SCH ×3 (09:29→20:21)
[2021-10-03] MEDS: GABAPENTIN 100 MG CAPSULE. PO SCH ×3 (09:29→20:21)
[2021-10-03] MEDS: SPIRONOLACTONE 25 MG TABLET PO SCH (09:30)
[2021-10-03] MEDS: CARVEDILOL 6.25 MG TABLET. PO SCH ×2 (09:30→18:12)
[2021-10-03] MEDS: LACTOBACILLUS RHAMNOSUS GG 1 CAPSULE. PO SCH ×2 (09:30→20:21)
--- NOTE | 2021-10-03 09:31 | PDOC ---
PULMONARY PROGRESS NOTES DATE: 10/03/21 TIME: 09:30 Subjective More awake. Feels slightly better. Less cough. Vitals Vital Signs Date Time Temp Pulse Resp B/P (MAP) Pulse Ox O2 Delivery O2 Flow Rate FiO2 10/03/21 07:17 98 Nasal Cannula 3.0 10/03/21 07:00 96.3 69 18 164/77 (106) 96.3 General: Alert, No acute distress Lungs: Clear Cardiovascular: S1 Abdomen: Soft Neuro Exam: Alert Extremities: Other (Lower extremity lymphedema) Skin: Warm Labs Laboratory Tests Test 10/01/21 12:08 10/01/21 17:17 10/01/21 20:44 10/02/21 04:00 Glucose (Fingerstick) 143 mg/dL (70-99) 126 mg/dL (70-99) 131 mg/dL (70-99) White Blood Count 9.7 x10^3/uL (4.0-11.0) Red Blood Count 3.16 x10^6/uL (3.50-5.40) Hemoglobin 10.0 g/dL (12.0-15.5) Hematocrit 30.1 % (36.0-47.0) Mean Corpuscular Volume 96 fL (79-100) Mean Corpuscular Hemoglobin 32 pg (25-35) Mean Corpuscular Hemoglobin Concent 33 g/dL (31-37) Red Cell Distribution Width 14.7 % (11.5-14.5) Platelet Count 194 x10^3/uL (140-400) Neutrophils (%) (Auto) 78 % (31-73) Lymphocytes (%) (Auto) 12 % (24-48) Monocytes (%) (Auto) 6 % (0-9) Eosinophils (%) (Auto) 4 % (0-3) Basophils (%) (Auto) 0 % (0-3) Neutrophils # (Auto) 7.5 x10^3/uL (1.8-7.7) Lymphocytes # (Auto) 1.2 x10^3/uL (1.0-4.8) Monocytes # (Auto) 0.6 x10^3/uL (0.0-1.1) Eosinophils # (Auto) 0.3 x10^3/uL (0.0-0.7) Basophils # (Auto) 0.0 x10^3/uL (0.0-0.2) Sodium Level 140 mmol/L (136-145) Potassium Level 4.5 mmol/L (3.5-5.1) Chloride Level 103 mmol/L (98-107) Carbon Dioxide Level 29 mmol/L (21-32) Anion Gap 8 (6-14) Blood Urea Nitrogen 60 mg/dL (7-20) Creatinine 3.0 mg/dL (0.6-1.0) Estimated GFR (Cockcroft-Gault) 15.1 Glucose Level 128 mg/dL (70-99) Calcium Level 8.1 mg/dL (8.5-10.1) Test 10/02/21 07:18 10/02/21 11:43 10/02/21 16:53 10/02/21 21:32 Glucose (Fingerstick) 109 mg/dL (70-99) 161 mg/dL (70-99) 161 mg/dL (70-99) 236 mg/dL (70-99) Test 10/03/21 04:30 10/03/21 07:24 White Blood Count 7.6 x10^3/uL (4.0-11.0) Red Blood Count 3.29 x10^6/uL (3.50-5.40) Hemoglobin 10.3 g/dL (12.0-15.5) Hematocrit 31.0 % (36.0-47.0) Mean Corpuscular Volume 94 fL (79-100) Mean Corpuscular Hemoglobin 31 pg (25-35) Mean Corpuscular Hemoglobin Concent 33 g/dL (31-37) Red Cell Distribution Width 14.2 % (11.5-14.5) Platelet Count 208 x10^3/uL (140-400) Neutrophils (%) (Auto) 92 % (31-73) Lymphocytes (%) (Auto) 6 % (24-48) Monocytes (%) (Auto) 2 % (0-9) Eosinophils (%) (Auto) 0 % (0-3) Basophils (%) (Auto) 0 % (0-3) Neutrophils # (Auto) 7.0 x10^3/uL (1.8-7.7) Lymphocytes # (Auto) 0.4 x10^3/uL (1.0-4.8) Monocytes # (Auto) 0.1 x10^3/uL (0.0-1.1) Eosinophils # (Auto) 0.0 x10^3/uL (0.0-0.7) Basophils # (Auto) 0.0 x10^3/uL (0.0-0.2) Sodium Level 141 mmol/L (136-145) Potassium Level 5.1 mmol/L (3.5-5.1) Chloride Level 102 mmol/L (98-107) Carbon Dioxide Level 27 mmol/L (21-32) Anion Gap 12 (6-14) Blood Urea Nitrogen 58 mg/dL (7-20) Creatinine 2.3 mg/dL (0.6-1.0) Estimated GFR (Cockcroft-Gault) 20.6 BUN/Creatinine Ratio 25 (6-20) Glucose Level 208 mg/dL (70-99) Calcium Level 8.6 mg/dL (8.5-10.1) Total Bilirubin 0.3 mg/dL (0.2-1.0) Aspartate Amino Transf (AST/SGOT) 34 U/L (15-37) Alanine Aminotransferase (ALT/SGPT) 10 U/L (14-59) Alkaline Phosphatase 94 U/L (46-116) Total Protein 6.5 g/dL (6.4-8.2) Albumin 2.3 g/dL (3.4-5.0) Albumin/Globulin Ratio 0.5 (1.0-1.7) Glucose (Fingerstick) 163 mg/dL (70-99) Laboratory Tests Test 10/02/21 11:43 10/02/21 16:53 10/02/21 21:32 10/03/21 04:30 Glucose (Fingerstick) 161 mg/dL (70-99) 161 mg/dL (70-99) 236 mg/dL (70-99) White Blood Count 7.6 x10^3/uL (4.0-11.0) Red Blood Count 3.29 x10^6/uL (3.50-5.40) Hemoglobin 10.3 g/dL (12.0-15.5) Hematocrit 31.0 % (36.0-47.0) Mean Corpuscular Volume 94 fL (79-100) Mean Corpuscular Hemoglobin 31 pg (25-35) Mean Corpuscular Hemoglobin Concent 33 g/dL (31-37) Red Cell Distribution Width 14.2 % (11.5-14.5) Platelet Count 208 x10^3/uL (140-400) Neutrophils (%) (Auto) 92 % (31-73) Lymphocytes (%) (Auto) 6 % (24-48) Monocytes (%) (Auto) 2 % (0-9) Eosinophils (%) (Auto) 0 % (0-3) Basophils (%) (Auto) 0 % (0-3) Neutrophils # (Auto) 7.0 x10^3/uL (1.8-7.7) Lymphocytes # (Auto) 0.4 x10^3/uL (1.0-4.8) Monocytes # (Auto) 0.1 x10^3/uL (0.0-1.1) Eosinophils # (Auto) 0.0 x10^3/uL (0.0-0.7) Basophils # (Auto) 0.0 x10^3/uL (0.0-0.2) Sodium Level 141 mmol/L (136-145) Potassium Level 5.1 mmol/L (3.5-5.1) Chloride Level 102 mmol/L (98-107) Carbon Dioxide Level 27 mmol/L (21-32) Anion Gap 12 (6-14) Blood Urea Nitrogen 58 mg/dL (7-20) Creatinine 2.3 mg/dL (0.6-1.0) Estimated GFR (Cockcroft-Gault) 20.6 BUN/Creatinine Ratio 25 (6-20) Glucose Level 208 mg/dL (70-99) Calcium Level 8.6 mg/dL (8.5-10.1) Total Bilirubin 0.3 mg/dL (0.2-1.0) Aspartate Amino Transf (AST/SGOT) 34 U/L (15-37) Alanine Aminotransferase (ALT/SGPT) 10 U/L (14-59) Alkaline Phosphatase 94 U/L (46-116) Total Protein 6.5 g/dL (6.4-8.2) Albumin 2.3 g/dL (3.4-5.0) Albumin/Globulin Ratio 0.5 (1.0-1.7) Test 10/03/21 07:24 Glucose (Fingerstick) 163 mg/dL (70-99) Medications Active Scripts Medications Dose Route/Sig Max Daily Dose Days Date Category Augmentin 875-125 Tablet (Amoxicillin/Potassium Clav) 1 Each Tablet 1 Tab PO BID 10 02/24/19 Rx Famciclovir 500 Mg Tablet 500 Mg PO TID 7 08/11/17 Rx Zyrtec (Cetirizine Hcl) 10 Mg Tablet 10 Mg PO HS PRN 08/19/15 Rx Montelukast Sodium Tablet (Montelukast Sodium) 10 Mg Tablet 10 Mg PO QHS 08/19/15 Rx Gabapentin (Gabapentin) 100 Mg Capsule 100 Mg PO TID 08/19/15 Rx Diflucan (Fluconazole) 100 Mg Tablet 100 Mg PO DAILY 08/19/15 Rx Allopurinol 100 Mg Tablet 100 Mg PO HS 08/19/15 Rx Novolog (Insulin Aspart) 100 Unit/1 Ml Cartridge 10 Unit SQ BID 08/18/15 Reported Humulin 70-30 Vial (Hum Insulin Nph/Reg Insulin Hm) 100 Unit/1 Ml Vial 18 Unit SQ BID 08/18/15 Reported [Hydrocodone/Acetaminophen] 1 TAB Tablet 1 Tab PO PRN Q6HRS PRN 30 12/29/13 Rx Coreg (Carvedilol) 6.25 Mg Tablet 1 Tab PO BID 12/25/13 Reported Spironolactone 25 Mg Tablet 1 Tab PO DAILY 12/25/13 Reported Furosemide 40 Mg Tablet 40 Mg PO QHS 12/25/13 Reported Impression . 1. Acute hypoxic respiratory failure secondary to fever. 2. Fever, She does have a cough and chest congestion. Chest x-ray without any definite consolidation. 3. Underlying obesity and suspected sleep apnea. 4. Mild rhonchi and bronchospasm related to respiratory tract infection. 5. D-dimer only 0.5. No further need for thromboembolic workup. Plan . RECOMMENDATIONS: 1. Continue present oxygen to keep saturation 92% and above. 2. Continue with Rocephin and azithromycin. 3. Monitor the fever curve. Follow infectious disease recommendations. 4. Noncontrast CT chest reviewed. She does have left lower lobe pneumonitis. There are some mild groundglass patchy infiltrates suggestive of inflammatory etiology. 5. Follow blood cultures. Look for other sources of infection as well. 6. Continue present nebulizer with DuoNebs and Pulmicort. 7. Discussed with RN. We will follow along with you. Continue DVT prophylaxis with subcutaneous heparin. ELEANOR COSTELLO MD October 03, 2021 09:31
[2021-10-03] MEDS: HEPARIN for SUB-Q USE 5,000 UNIT/ML VIAL. SQ SCH ×2 (09:51→20:40)
[2021-10-03] MEDS: INSULIN NPH/REG HUM 70/30 300 UNITS/3 ML VIAL. SQ SCH (09:58)
--- NOTE | 2021-10-03 10:04 | PDOC ---
IM PROGRESS NOTES- Subjective Subjective Complaints of cough, congestion and fever. Feeling slightly better. Still getting a lot of coughing spells. Complains of weakness. Objective Vitals/I&O Vital Signs Date Time Temp Pulse Resp B/P (MAP) Pulse Ox O2 Delivery O2 Flow Rate FiO2 10/03/21 09:30 69 164/77 10/03/21 07:17 98 Nasal Cannula 3.0 10/03/21 07:00 96.3 18 96.3 I & O 10/02/21 10/02/21 10/03/21 15:00 23:00 07:00 Intake Total 250 ml 0 ml 240 ml Balance 250 ml 0 ml 240 ml Physical Exam Physical Exam General Appearance - alert and in no distress Chest - decreased breath sounds at bases Heart - S1 and S2 normal Abdomen - soft, non tender Neurological - alert and oriented Musculoskeletal - generalized weakness Extremities - no edema Labs Laboratory Tests Test 10/02/21 11:43 10/02/21 16:53 10/02/21 21:32 10/03/21 04:30 Glucose (Fingerstick) 161 mg/dL (70-99) H 161 mg/dL (70-99) H 236 mg/dL (70-99) H White Blood Count 7.6 x10^3/uL (4.0-11.0) Red Blood Count 3.29 x10^6/uL (3.50-5.40) L Hemoglobin 10.3 g/dL (12.0-15.5) L Hematocrit 31.0 % (36.0-47.0) L Mean Corpuscular Volume 94 fL (79-100) Mean Corpuscular Hemoglobin 31 pg (25-35) Mean Corpuscular Hemoglobin Concent 33 g/dL (31-37) Red Cell Distribution Width 14.2 % (11.5-14.5) Platelet Count 208 x10^3/uL (140-400) Neutrophils (%) (Auto) 92 % (31-73) H Lymphocytes (%) (Auto) 6 % (24-48) L Monocytes (%) (Auto) 2 % (0-9) Eosinophils (%) (Auto) 0 % (0-3) Basophils (%) (Auto) 0 % (0-3) Neutrophils # (Auto) 7.0 x10^3/uL (1.8-7.7) Lymphocytes # (Auto) 0.4 x10^3/uL (1.0-4.8) L Monocytes # (Auto) 0.1 x10^3/uL (0.0-1.1) Eosinophils # (Auto) 0.0 x10^3/uL (0.0-0.7) Basophils # (Auto) 0.0 x10^3/uL (0.0-0.2) Sodium Level 141 mmol/L (136-145) Potassium Level 5.1 mmol/L (3.5-5.1) Chloride Level 102 mmol/L (98-107) Carbon Dioxide Level 27 mmol/L (21-32) Anion Gap 12 (6-14) Blood Urea Nitrogen 58 mg/dL (7-20) H Creatinine 2.3 mg/dL (0.6-1.0) H Estimated GFR (Cockcroft-Gault) 20.6 BUN/Creatinine Ratio 25 (6-20) H Glucose Level 208 mg/dL (70-99) H Calcium Level 8.6 mg/dL (8.5-10.1) Total Bilirubin 0.3 mg/dL (0.2-1.0) Aspartate Amino Transferase (AST) 34 U/L (15-37) Alanine Aminotransferase (ALT) 10 U/L (14-59) L Alkaline Phosphatase 94 U/L (46-116) Total Protein 6.5 g/dL (6.4-8.2) Albumin 2.3 g/dL (3.4-5.0) L Albumin/Globulin Ratio 0.5 (1.0-1.7) L Test 10/03/21 07:24 Glucose (Fingerstick) 163 mg/dL (70-99) H Laboratory Tests 10/03/21 04:30 Laboratory Tests 10/03/21 04:30 Meds Current Medications Medications (Trade) Dose Ordered Sig/Magali Route PRN Reason Start Time Stop Time Status Last Admin Dose Admin Methylprednisolone Sodium Succinate (SOLU-Medrol 40MG VIAL) 60 mg 1X ONCE IV 10/02/21 11:00 10/02/21 11:01 DC 10/02/21 11:54 Lactobacillus Rhamnosus (Culturelle) 1 cap BID PO 10/02/21 21:00 10/03/21 09:30 Assessment Assessment 1. Acute bronchitis with exacerbation of chronic obstructive pulmonary disease. 2. Rule out COVID-19 infection. 3. Morbid obesity. 4. Diabetes mellitus type 2 with neuropathy. 5. Osteoarthritis. 6. Chronic lumbar spinal stenosis. 7. Fibromyalgia. 8. Gout. 9. Chronic kidney disease stage III to IV. Her baseline creatinine is 2.1. PLAN: 1. Acute bronchitis with pneumonia. I will start her on IV Rocephin and Zithromax. Consult Dr. Mckeon for pulmonary evaluation and management. Leukocytosis is improving. in a.m. influenza A, influenza B, SARS-CoV-2 rapid antigen test as well as PCR is negative. Leukocytosis is improving but fever is persistent. Consult Dr. Pagan for infectious disease evaluation and management. Add DuoNeb and budesonide breathing treatment. CT scan of chest without contrast on October 01, 2021 1. Mild left lower lobe infiltrates pneumonia is possible. 2. Groundglass atelectasis or infiltrates in other lobes. 3. Small rounded infiltrates or nodules in the right upper lobe follow-up would be of benefit. 4. Limitations due to artifact from the patient's size and restaurant motion. 5. Distended gallbladder. 6. Narrowing of the trachea and mainstem bronchi. 2. Acute on chronic diastolic and systolic congestive heart failure. Restart p.o. Lasix tomorrow. Consult Dr. Castillo for cardiology evaluation and management. Echocardiogram shows ejection fraction of 35 to 40% with diastolic dysfunction. Monitor electrolytes and renal function. Echocardiogram The left ventricle is normal size. LV systolic function is moderately impaired. The Ejection Fraction is 35-40%. There is global hypokinesis of the left ventricle. Doppler and Color Flow revealed no significant aortic regurgitation. There is no significant aortic valvular stenosis. Doppler and Color-flow revealed mild to moderate mitral regurgitation. Doppler and Color Flow revealed trace tricuspid regurgitation. 3. Diabetic neuropathy. She takes 14 units of Novolin NPH 70/30 in the morning and 14 units at bedtime. She takes 10 units of NovoLog insulin in the morning and 10 units at supper. I will adjust the dose of insulin and use sliding scale insulin. Monitor blood sugars. 4. Acute hypoxic respiratory failure. Continue oxygen by nasal cannula. 5. Exacerbation of COPD. Daily IV Solu-Medrol. Continue nebulizer. 6. Acute kidney injury with CKD. Creatinine has decreased from 3-2.3. Her baseline creatinine is 2.1. Physical deconditioning. Order PT OT. For details, please refer to the orders. Monitor closely. Start subcutaneous heparin for DVT prophylaxis. Prognosis of this patient is poor due to her multiple medical problems. Plan Plan For more details regarding further plans, please refer to the orders. Justifications for Admission Other Justification IWONA GALLOWAY MD October 03, 2021 10:04
--- NOTE | 2021-10-03 10:04 | PDOC ---
PROGRESS NOTES Date of Service: DATE: 10/03/21 TIME: 10:02 Subjective Subjective Feeling better with improvement in cough, denied any chest pain Objective Objective Vital Signs Date Time Temp Pulse Resp B/P (MAP) Pulse Ox O2 Delivery O2 Flow Rate FiO2 10/03/21 09:30 69 164/77 10/03/21 07:17 98 Nasal Cannula 3.0 10/03/21 07:00 96.3 18 96.3 Intake and Output 10/03/21 07:00 Intake Total 490 ml Balance 490 ml Intake Oral 240 ml IV Total 250 ml # Voids 7 Physical Exam Abdomen: Soft, No tenderness, Other (obese) Heart: Regular rate (SR), Other (distant heart sounds) General: Alert, Cooperative, No acute distress, Other (disheveld appearance) HEENT: Atraumatic, Mucous membr. moist/pink, Other (nasal congestion) Lungs: Other (diminished with upper wheeze) Neuro: Normal speech, Sensation intact Psych/Mental Status: Mental status NL, Other (flat affect) Skin: No breakdown, No significant lesion, Other (venous dermatitis) Assessment Assessment 1. AECOPD: Treat per pulmonary team. 2. Acute bronchitis/URI: Continue intravenous antibiotics per IM. 3. PUI: COVID test negative. 4. HTN: Labile 5. DM2: Treat per IM 6. CKD3-4 7. Chronic systolic heart failure: 2D echo showed LVEF 35 to 40%. Plan ischemic evaluation as an outpatient. Continue beta-blockers. We will hold off on ACEI/ARB secondary to renal insufficiency 8. Fever with CT chest showing possible pneumonia. Pulmonary team following. Plan Plan of Care Problems Medical Problems: (1) Conjunctivitis Status: Acute (2) Short of breath on exertion Status: Acute Comment Review of Relevant I have reviewed the following items joni (where applicable) has been applied. Labs Laboratory Tests Test 10/02/21 11:43 10/02/21 16:53 10/02/21 21:32 10/03/21 04:30 Glucose (Fingerstick) 161 mg/dL (70-99) 161 mg/dL (70-99) 236 mg/dL (70-99) White Blood Count 7.6 x10^3/uL (4.0-11.0) Red Blood Count 3.29 x10^6/uL (3.50-5.40) Hemoglobin 10.3 g/dL (12.0-15.5) Hematocrit 31.0 % (36.0-47.0) Mean Corpuscular Volume 94 fL (79-100) Mean Corpuscular Hemoglobin 31 pg (25-35) Mean Corpuscular Hemoglobin Concent 33 g/dL (31-37) Red Cell Distribution Width 14.2 % (11.5-14.5) Platelet Count 208 x10^3/uL (140-400) Neutrophils (%) (Auto) 92 % (31-73) Lymphocytes (%) (Auto) 6 % (24-48) Monocytes (%) (Auto) 2 % (0-9) Eosinophils (%) (Auto) 0 % (0-3) Basophils (%) (Auto) 0 % (0-3) Neutrophils # (Auto) 7.0 x10^3/uL (1.8-7.7) Lymphocytes # (Auto) 0.4 x10^3/uL (1.0-4.8) Monocytes # (Auto) 0.1 x10^3/uL (0.0-1.1) Eosinophils # (Auto) 0.0 x10^3/uL (0.0-0.7) Basophils # (Auto) 0.0 x10^3/uL (0.0-0.2) Sodium Level 141 mmol/L (136-145) Potassium Level 5.1 mmol/L (3.5-5.1) Chloride Level 102 mmol/L (98-107) Carbon Dioxide Level 27 mmol/L (21-32) Anion Gap 12 (6-14) Blood Urea Nitrogen 58 mg/dL (7-20) Creatinine 2.3 mg/dL (0.6-1.0) Estimated GFR (Cockcroft-Gault) 20.6 BUN/Creatinine Ratio 25 (6-20) Glucose Level 208 mg/dL (70-99) Calcium Level 8.6 mg/dL (8.5-10.1) Total Bilirubin 0.3 mg/dL (0.2-1.0) Aspartate Amino Transf (AST/SGOT) 34 U/L (15-37) Alanine Aminotransferase (ALT/SGPT) 10 U/L (14-59) Alkaline Phosphatase 94 U/L (46-116) Total Protein 6.5 g/dL (6.4-8.2) Albumin 2.3 g/dL (3.4-5.0) Albumin/Globulin Ratio 0.5 (1.0-1.7) Test 10/03/21 07:24 Glucose (Fingerstick) 163 mg/dL (70-99) Microbiology 09/29/21 Blood Culture - Preliminary, Resulted NO GROWTH AFTER 3 DAYS Medications Current Medications Lactobacillus Rhamnosus (Culturelle) 1 cap BID PO Last administered on 10/03/21at 09:30; Start 10/02/21 at 21:00 Methylprednisolone Sodium Succinate (SOLU-Medrol 40MG VIAL) 60 mg 1X ONCE IV Last administered on 10/02/21at 11:54; Start 10/02/21 at 11:00; Stop 10/02/21 at 11:01; Status DC Vitals/I & O Vital Sign - Last 24 Hours 10/02/21 10/02/21 10/02/21 10/02/21 11:00 11:57 15:00 15:47 Temp 97.9 98.5 97.9 98.5 Pulse 80 82 Resp 18 22 B/P (MAP) 135/60 (85) 134/76 (95) Pulse Ox 95 92 93 91 O2 Delivery Nasal Cannula Nasal Cannula O2 Flow Rate 2.0 2.0 10/02/21 10/02/21 10/02/21 10/02/21 17:25 19:00 19:30 19:47 Temp 98.6 98.6 Pulse 82 83 Resp 18 B/P (MAP) 134/76 133/57 (82) Pulse Ox 93 93 O2 Delivery Nasal Cannula Nasal Cannula Nasal Cannula O2 Flow Rate 2.0 2.0 3.0 10/02/21 10/02/21 10/02/21 10/03/21 21:55 22:25 23:00 03:00 Temp 98.7 98.0 98.7 98.0 Pulse 78 72 Resp 22 20 20 18 B/P (MAP) 125/57 (79) 120/57 (78) Pulse Ox 95 95 O2 Delivery Nasal Cannula Nasal Cannula Nasal Cannula Nasal Cannula O2 Flow Rate 3.0 3.0 2.0 2.0 10/03/21 10/03/21 10/03/21 07:00 07:17 09:30 Temp 96.3 96.3 Pulse 69 69 Resp 18 B/P (MAP) 164/77 (106) 164/77 Pulse Ox 98 98 O2 Delivery Nasal Cannula Nasal Cannula O2 Flow Rate 2.0 3.0 Intake and Output 10/02/21 10/02/21 10/03/21 15:00 23:00 07:00 Intake Total 250 ml 0 ml 240 ml Balance 250 ml 0 ml 240 ml LUCIANA CARRILLO MD October 03, 2021 10:04
[2021-10-03 11:00] VITALS: BP 148/66
[2021-10-03] MEDS: methylPREDNISolone SOD SUCC PF 40 MG/ML VIAL. IV SCH (12:36)
--- NOTE | 2021-10-03 12:50 | CONS ---
DATE OF CONSULTATION: 10/03/2021 REQUESTING PHYSICIAN: Tona Harrell MD REASON FOR CONSULTATION: Pneumonia. HISTORY OF PRESENT ILLNESS: This is a 75-year-old female with morbid obesity, who came in with cough and fever. The patient was found to have pneumonia, leukocytosis and fever. Fever has improved. White count has improved. She is on Rocephin and azithromycin. She continues to have significant cough and she says she is not any better. Denies any nausea, vomiting, diarrhea. Denies any chest pain, abdominal pain, urinary symptoms or bowel symptoms. PAST MEDICAL HISTORY: Positive for hypertension, hyperlipidemia and obesity. The patient has had knee replacement and hysterectomy. SOCIAL HISTORY: Negative for smoking, alcohol, or illicit drug use. ALLERGIES: No known drug allergies. CURRENT MEDICATIONS: Reviewed. REVIEW OF SYSTEMS: As in HPI. All other systems reviewed are negative. PHYSICAL EXAMINATION: GENERAL: Alert, oriented female, not in distress. VITAL SIGNS: Stable, afebrile. HEENT: NAD. NECK: Supple, no JVP, no lymphadenopathy. LUNGS: Clear. HEART: S1, S2, regular. ABDOMEN: Benign. EXTREMITIES: No edema or cyanosis. SKIN: Unremarkable. NEUROLOGIC: The patient is alert, awake, and appropriate. No focal neurologic deficit. LABORATORY DATA: White count is 7.6, down from 12,000. BUN and creatinine is 58 and 2.3. COVID negative, influenza negative, blood cultures negative. Chest CT showed bilateral mild left lower lobe infiltrate and ground-glass opacity, bilateral. IMPRESSION: 1. Community-acquired pneumonia. 2. Fever. 3. Leukocytosis. 4. Renal insufficiency. 5. Obesity. RECOMMENDATIONS: Antibiotic can be switched over to p.o. cefdinir. Symptomatic treatment with Phenergan with codeine. Supportive care and continue to follow. Thank you very much, Dr. Harrell, for giving me opportunity to participate in this patient's care. PEE/KG/SABINA ROD: PEE/lo TID: [id number]
[2021-10-03 15:00] VITALS: BP 161/91
[2021-10-03 19:00] VITALS: BP 129/57
[2021-10-03] MEDS: ALLOPURINOL 100 MG TABLET. PO SCH (20:21)
[2021-10-03] MEDS: MONTELUKAST SODIUM 10 MG TABLET. PO SCH (20:21)
[2021-10-03] MEDS ORDERED: INSULIN NPH/REG HUM 70/30 300 UNITS/3 ML VIAL. SQ SCH (21:00)
[2021-10-03 23:00] VITALS: BP 121/59
[2021-10-04] MEDS: ERYTHROMYCIN 0.5% OPHTH OINTMENT 1GM TUBE. OU SCH ×5 (00:40→17:24)
[2021-10-04 01:30] LABS: BACTERIA,URINE 0 /HPF (0-FEW); RBC,URINE 0 /HPF (0-2); WBC,URINE OCC /HPF (0-4)
[2021-10-04 03:00] VITALS: BP 138/94
[2021-10-04 07:00] VITALS: BP 93/57
[2021-10-04] MEDS: IPRATRPIUM/ALBUTEROL 0.5/2.5MG 3 ML NEBU. NEB SCH ×4 (07:28→21:05)
[2021-10-04] MEDS: BUDESONIDE 0.5 MG/2 ML NEBU. NEB SCH ×2 (07:29→21:05)
[2021-10-04] MEDS: INSULIN LISPRO 300 UNITS/3 ML VIAL. SQ SCH ×4 (07:30→17:30)
[2021-10-04] MEDS: CARVEDILOL 6.25 MG TABLET. PO SCH ×2 (08:00→17:24)
[2021-10-04] MEDS ORDERED: INSULIN NPH/REG HUM 70/30 300 UNITS/3 ML VIAL. SQ SCH (08:00)
--- NOTE | 2021-10-04 08:09 | PDOC ---
IM PROGRESS NOTES- Subjective Subjective Complaints of cough, congestion and fever. Feeling slightly better. Still getting a lot of coughing spells. Complains of weakness. Objective Vitals/I&O Vital Signs Date Time Temp Pulse Resp B/P (MAP) Pulse Ox O2 Delivery O2 Flow Rate FiO2 10/04/21 07:29 96 Nasal Cannula 3.0 10/04/21 03:00 97.8 78 20 138/94 (109) 97.8 I & O 10/03/21 10/03/21 10/04/21 15:00 23:00 07:00 Intake Total 240 ml 440 ml 0 ml Balance 240 ml 440 ml 0 ml Physical Exam Physical Exam General Appearance - alert and in no distress Chest - decreased breath sounds at bases Heart - S1 and S2 normal Abdomen - soft, non tender Neurological - alert and oriented Musculoskeletal - generalized weakness Extremities - no edema Labs Laboratory Tests Test 10/03/21 11:39 10/03/21 16:54 10/03/21 19:11 10/04/21 00:15 Glucose (Fingerstick) 232 mg/dL (70-99) H 160 mg/dL (70-99) H 192 mg/dL (70-99) H Urine Collection Type Unknown Urine Color (Auto) Light yellow Urine Turbidity Clear Urine pH (Auto) 5.5 (<5.0-8.0) Urine Specific [place] 1.014 (1.000-1.030) Urine Protein (Auto) Negative mg/dL (Negative) Urine Glucose (Auto)(UA) Negative mg/dL (Negative) Urine Ketones (Auto) Negative mg/dL (Negative) Urine Blood (Auto) Negative (Negative) Urine Nitrite Negative (Negative) Urine Bilirubin (Auto) Negative (Negative) Urine Urobilinogen (Auto) Normal mg/dL (Normal) Urine Leukocyte Esterase (Auto) Negative (Negative) Urine RBC 0 /HPF (0-2) Urine WBC Occ /HPF (0-4) Urine Squamous Epithelial Cells Mod /LPF Urine Bacteria 0 /HPF (0-FEW) Urine Mucus Slight /LPF Test 10/04/21 07:13 Glucose (Fingerstick) 150 mg/dL (70-99) H Meds Current Medications Medications (Trade) Dose Ordered Sig/Magali Route PRN Reason Start Time Stop Time Status Last Admin Dose Admin Insulin Human Isoph/Insulin Regular (HumuLIN 70-30 VIAL) 14 units HS SQ 10/03/21 21:00 10/04/21 00:55 Insulin Human Lispro (HumaLOG) 5 units BID AC SQ 10/03/21 17:30 10/03/21 18:16 Methylprednisolone Sodium Succinate (SOLU-Medrol 40MG VIAL) 40 mg DAILY10 IV 10/03/21 10:30 10/03/21 12:36 Assessment Assessment 1. Acute bronchitis with exacerbation of chronic obstructive pulmonary disease. 2. Rule out COVID-19 infection. 3. Morbid obesity. 4. Diabetes mellitus type 2 with neuropathy. 5. Osteoarthritis. 6. Chronic lumbar spinal stenosis. 7. Fibromyalgia. 8. Gout. 9. Chronic kidney disease stage III to IV. Her baseline creatinine is 2.1. PLAN: 1. Acute bronchitis with pneumonia. I will start her on IV Rocephin and Zithromax. Consult Dr. Mckeon for pulmonary evaluation and management. Leukocytosis is improving. in a.m. influenza A, influenza B, SARS-CoV-2 rapid antigen test as well as PCR is negative.Blood c/s x2 are negative. Leukocytosis is improving but fever is persistent. Consult Dr. Pagan for infectious disease evaluation and management. Add DuoNeb and budesonide breathing treatment. CT scan of chest without contrast on October 01, 2021 1. Mild left lower lobe infiltrates pneumonia is possible. 2. Groundglass atelectasis or infiltrates in other lobes. 3. Small rounded infiltrates or nodules in the right upper lobe follow-up would be of benefit. 4. Limitations due to artifact from the patient's size and restaurant motion. 5. Distended gallbladder. 6. Narrowing of the trachea and mainstem bronchi. Changed to p.o. cefdinir. 2. Acute on chronic diastolic and systolic congestive heart failure. Consult Dr. Castillo for cardiology evaluation and management. Echocardiogram shows ejection fraction of 35 to 40% with diastolic dysfunction. Monitor electrolytes and renal function. Echocardiogram The left ventricle is normal size. LV systolic function is moderately impaired. The Ejection Fraction is 35-40%. There is global hypokinesis of the left ventricle. Doppler and Color Flow revealed no significant aortic regurgitation. There is no significant aortic valvular stenosis. Doppler and Color-flow revealed mild to moderate mitral regurgitation. Doppler and Color Flow revealed trace tricuspid regurgitation. 3. Diabetic neuropathy. She takes 14 units of Novolin NPH 70/30 in the morning and 14 units at bedtime. She takes 10 units of NovoLog insulin in the morning and 10 units at supper. I will adjust the dose of insulin and use sliding scale insulin. Monitor blood sugars. 4. Acute hypoxic respiratory failure. Continue oxygen by nasal cannula. She is still requiring oxygen by nasal cannula 3 L/min. 5. Exacerbation of COPD. Daily IV Solu-Medrol. Continue nebulizer. Discharge to longterm unit on p.o. steroids. 6. Acute kidney injury with CKD. Creatinine has decreased from 3-2.1. Her baseline creatinine is 2.1. And has increased to 60 and this may be due to steroid use. Physical deconditioning. Order PT OT. For details, please refer to the orders. Monitor closely. Start subcutaneous heparin for DVT prophylaxis. Prognosis of this patient is poor due to her multiple medical problems. Clinically improving slowly. Still remains very weak and on oxygen by nasal cannula 3 L/min. Discharge to longterm unit on p.o. antibiotics and steroids. Plan Plan For more details regarding further plans, please refer to the orders. Justifications for Admission Other Justification IWONA GALLOWAY MD October 04, 2021 08:09
[2021-10-04 08:59] LABS: CALCIUM 8.6 mg/dL (8.5-10.1); CREATININE 2.1 mg/dL (0.6-1.0); GFR 22.8
[2021-10-04] MEDS ORDERED: AZITHROMYCIN 250 MG TABLET. PO SCH (09:00)
[2021-10-04 09:02] LABS: POTASSIUM 5.4 mmol/L (3.5-5.1)
[2021-10-04] MEDS ORDERED: LACT1CAP19 PO (09:23)
[2021-10-04] MEDS ORDERED: ACET325T21 PO (09:23)
[2021-10-04] MEDS ORDERED: GUAI600T47 PO (09:23)
[2021-10-04] MEDS ORDERED: HUM100VI SQ (09:23)
[2021-10-04] MEDS ORDERED: INSU100C4 SQ (09:23)
[2021-10-04] MEDS ORDERED: METH4TAB2 PO (09:23)
[2021-10-04] MEDS ORDERED: HEPA50003 SQ (09:23)
[2021-10-04] MEDS ORDERED: IPRA3AMP29 NEB (09:23)
[2021-10-04] MEDS ORDERED: BENZ-8 PO (09:23)
[2021-10-04] MEDS ORDERED: CEFD300C PO (09:23)
[2021-10-04] MEDS ORDERED: INSU100V35 SQ (09:23)
[2021-10-04] MEDS ORDERED: ERYT1OIN3 OU (09:23)
--- NOTE | 2021-10-04 09:27 | PDOC ---
PULMONARY PROGRESS NOTES DATE: 10/04/21 TIME: 09:27 Subjective Patient continues to have paroxysmal coughing spells. Not more short of air. Vitals Vital Signs Date Time Temp Pulse Resp B/P (MAP) Pulse Ox O2 Delivery O2 Flow Rate FiO2 10/04/21 07:29 96 Nasal Cannula 3.0 10/04/21 07:00 98.0 71 18 93/57 (69) 98.0 General: Alert, No acute distress Lungs: Clear Cardiovascular: S1 Abdomen: Soft Neuro Exam: Alert Extremities: Other (Lower extremity lymphedema) Skin: Warm Labs Laboratory Tests Test 10/02/21 11:43 10/02/21 16:53 10/02/21 21:32 10/03/21 04:30 Glucose (Fingerstick) 161 mg/dL (70-99) 161 mg/dL (70-99) 236 mg/dL (70-99) White Blood Count 7.6 x10^3/uL (4.0-11.0) Red Blood Count 3.29 x10^6/uL (3.50-5.40) Hemoglobin 10.3 g/dL (12.0-15.5) Hematocrit 31.0 % (36.0-47.0) Mean Corpuscular Volume 94 fL (79-100) Mean Corpuscular Hemoglobin 31 pg (25-35) Mean Corpuscular Hemoglobin Concent 33 g/dL (31-37) Red Cell Distribution Width 14.2 % (11.5-14.5) Platelet Count 208 x10^3/uL (140-400) Neutrophils (%) (Auto) 92 % (31-73) Lymphocytes (%) (Auto) 6 % (24-48) Monocytes (%) (Auto) 2 % (0-9) Eosinophils (%) (Auto) 0 % (0-3) Basophils (%) (Auto) 0 % (0-3) Neutrophils # (Auto) 7.0 x10^3/uL (1.8-7.7) Lymphocytes # (Auto) 0.4 x10^3/uL (1.0-4.8) Monocytes # (Auto) 0.1 x10^3/uL (0.0-1.1) Eosinophils # (Auto) 0.0 x10^3/uL (0.0-0.7) Basophils # (Auto) 0.0 x10^3/uL (0.0-0.2) Sodium Level 141 mmol/L (136-145) Potassium Level 5.1 mmol/L (3.5-5.1) Chloride Level 102 mmol/L (98-107) Carbon Dioxide Level 27 mmol/L (21-32) Anion Gap 12 (6-14) Blood Urea Nitrogen 58 mg/dL (7-20) Creatinine 2.3 mg/dL (0.6-1.0) Estimated GFR (Cockcroft-Gault) 20.6 BUN/Creatinine Ratio 25 (6-20) Glucose Level 208 mg/dL (70-99) Calcium Level 8.6 mg/dL (8.5-10.1) Total Bilirubin 0.3 mg/dL (0.2-1.0) Aspartate Amino Transf (AST/SGOT) 34 U/L (15-37) Alanine Aminotransferase (ALT/SGPT) 10 U/L (14-59) Alkaline Phosphatase 94 U/L (46-116) Total Protein 6.5 g/dL (6.4-8.2) Albumin 2.3 g/dL (3.4-5.0) Albumin/Globulin Ratio 0.5 (1.0-1.7) Test 10/03/21 07:24 10/03/21 11:39 10/03/21 16:54 10/03/21 19:11 Glucose (Fingerstick) 163 mg/dL (70-99) 232 mg/dL (70-99) 160 mg/dL (70-99) 192 mg/dL (70-99) Test 10/04/21 00:15 10/04/21 07:13 10/04/21 07:45 Urine Collection Type Unknown Urine Color (Auto) Light yellow Urine Turbidity Clear Urine pH (Auto) 5.5 (<5.0-8.0) Urine Specific [place] 1.014 (1.000-1.030) Urine Protein (Auto) Negative mg/dL (Negative) Urine Glucose (Auto)(UA) Negative mg/dL (Negative) Urine Ketones (Auto) Negative mg/dL (Negative) Urine Blood (Auto) Negative (Negative) Urine Nitrite Negative (Negative) Urine Bilirubin (Auto) Negative (Negative) Urine Urobilinogen (Auto) Normal mg/dL (Normal) Urine Leukocyte Esterase (Auto) Negative (Negative) Urine RBC 0 /HPF (0-2) Urine WBC Occ /HPF (0-4) Urine Squamous Epithelial Cells Mod /LPF Urine Bacteria 0 /HPF (0-FEW) Urine Mucus Slight /LPF Glucose (Fingerstick) 150 mg/dL (70-99) Sodium Level 142 mmol/L (136-145) Potassium Level 5.4 mmol/L (3.5-5.1) Chloride Level 106 mmol/L (98-107) Carbon Dioxide Level 26 mmol/L (21-32) Anion Gap 10 (6-14) Blood Urea Nitrogen 67 mg/dL (7-20) Creatinine 2.1 mg/dL (0.6-1.0) Estimated GFR (Cockcroft-Gault) 22.8 Glucose Level 141 mg/dL (70-99) Calcium Level 8.6 mg/dL (8.5-10.1) Laboratory Tests Test 10/03/21 11:39 10/03/21 16:54 10/03/21 19:11 10/04/21 00:15 Glucose (Fingerstick) 232 mg/dL (70-99) 160 mg/dL (70-99) 192 mg/dL (70-99) Urine Collection Type Unknown Urine Color (Auto) Light yellow Urine Turbidity Clear Urine pH (Auto) 5.5 (<5.0-8.0) Urine Specific [place] 1.014 (1.000-1.030) Urine Protein (Auto) Negative mg/dL (Negative) Urine Glucose (Auto)(UA) Negative mg/dL (Negative) Urine Ketones (Auto) Negative mg/dL (Negative) Urine Blood (Auto) Negative (Negative) Urine Nitrite Negative (Negative) Urine Bilirubin (Auto) Negative (Negative) Urine Urobilinogen (Auto) Normal mg/dL (Normal) Urine Leukocyte Esterase (Auto) Negative (Negative) Urine RBC 0 /HPF (0-2) Urine WBC Occ /HPF (0-4) Urine Squamous Epithelial Cells Mod /LPF Urine Bacteria 0 /HPF (0-FEW) Urine Mucus Slight /LPF Test 10/04/21 07:13 10/04/21 07:45 Glucose (Fingerstick) 150 mg/dL (70-99) Sodium Level 142 mmol/L (136-145) Potassium Level 5.4 mmol/L (3.5-5.1) Chloride Level 106 mmol/L (98-107) Carbon Dioxide Level 26 mmol/L (21-32) Anion Gap 10 (6-14) Blood Urea Nitrogen 67 mg/dL (7-20) Creatinine 2.1 mg/dL (0.6-1.0) Estimated GFR (Cockcroft-Gault) 22.8 Glucose Level 141 mg/dL (70-99) Calcium Level 8.6 mg/dL (8.5-10.1) Medications Active Scripts Medications Dose Route/Sig Max Daily Dose Days Date Category Augmentin 875-125 Tablet (Amoxicillin/Potassium Clav) 1 Each Tablet 1 Tab PO BID 10 02/24/19 Rx Famciclovir 500 Mg Tablet 500 Mg PO TID 7 08/11/17 Rx Zyrtec (Cetirizine Hcl) 10 Mg Tablet 10 Mg PO HS PRN 08/19/15 Rx Montelukast Sodium Tablet (Montelukast Sodium) 10 Mg Tablet 10 Mg PO QHS 08/19/15 Rx Gabapentin (Gabapentin) 100 Mg Capsule 100 Mg PO TID 08/19/15 Rx Diflucan (Fluconazole) 100 Mg Tablet 100 Mg PO DAILY 08/19/15 Rx Allopurinol 100 Mg Tablet 100 Mg PO HS 08/19/15 Rx Novolog (Insulin Aspart) 100 Unit/1 Ml Cartridge 10 Unit SQ BID 08/18/15 Reported Humulin 70-30 Vial (Hum Insulin Nph/Reg Insulin Hm) 100 Unit/1 Ml Vial 18 Unit SQ BID 08/18/15 Reported [Hydrocodone/Acetaminophen] 1 TAB Tablet 1 Tab PO PRN Q6HRS PRN 30 12/29/13 Rx Coreg (Carvedilol) 6.25 Mg Tablet 1 Tab PO BID 12/25/13 Reported Spironolactone 25 Mg Tablet 1 Tab PO DAILY 12/25/13 Reported Furosemide 40 Mg Tablet 40 Mg PO QHS 12/25/13 Reported Impression . 1. Acute hypoxic respiratory failure secondary to fever. 2. Fever, She does have a cough and chest congestion. Chest x-ray without any definite consolidation. 3. Underlying obesity and suspected sleep apnea. 4. Mild rhonchi and bronchospasm related to respiratory tract infection. 5. D-dimer only 0.5. No further need for thromboembolic workup. Plan . Updated 10/04 Continue current support Possible discharge today Switch to oral antibiotics RECOMMENDATIONS: 1. Continue present oxygen to keep saturation 92% and above. 2. Continue with Rocephin and azithromycin. 3. Monitor the fever curve. Follow infectious disease recommendations. 4. Noncontrast CT chest reviewed. She does have left lower lobe pneumonitis. There are some mild groundglass patchy infiltrates suggestive of inflammatory etiology. 5. Follow blood cultures. Look for other sources of infection as well. 6. Continue present nebulizer with DuoNebs and Pulmicort. 7. Discussed with RN. We will follow along with you. Continue DVT prophylaxis with subcutaneous heparin. EMERY CALLES MD October 04, 2021 09:27
--- NOTE | 2021-10-04 09:28 | SNU/HH DC ---
DISCHARGE ORDERS DISCHARGE INFORMATION: FINAL DIAGNOSIS Problems Medical Problems: (1) Conjunctivitis Status: Acute (2) Short of breath on exertion Status: Acute CONDITION ON DISCHARGE: Stable DETENTION: SNF STAY <30 DAYS: Yes POST DISCHARGE ORDERS: ACTIVITY ORDERS: Activity as tolerated (with walker) WEIGHT BEARING STATUS: As tolerated DIET AFTER DISCHARGE: ADA (Cardiac) FOLLOW-UP: PHYSICIAN FOLLOW-UP: Dr.Pratip Harrell in 1 week after discharge LAB ORDERS FOR FOLLOW-UP: BMP daily for 3 days and CBC ,CMP twice a week TREATMENT/EQUIPMENT ORDERS: ADAPTIVE EQUIPMENT NEEDED: None RESPIRATORY EQUIPMENT NEEDED: Oxygen (3 lit/min) Physical Therapy For: Evalulation/Treatment Occupational Therapy For: Evaluation/Treatment Speech Language Pathology For: Evaluation/Treatment DISCHARGE MEDICATIONS: Home Meds Active Scripts Methylprednisolone (MEDROL) 4 Mg Tab.ds.pk, 1 PKG PO UD for copd, #1 PKG Prov:IWONA HARRELL MD 10/04/21 Cefdinir (CEFDINIR) 300 Mg Capsule, 1 CAP PO BID for pneumonia, #14 CAP Prov:IWONA HARRELL MD 10/04/21 Insulin Lispro (Admelog) 100 Unit/1 Ml Vial, 0 SQ BIDBFRMEAL for DM for 30 Days, #1 EACH Glucose 151-200 give 2 units Glucose 201- 250 give 3 units. Glucose 251-300 give 4 units Glucose 301-350 give 6 units Glucose 351-400 give 8 units. Prov:IWONA HARRELL MD 10/04/21 Lactobacillus Rhamnosus Gg (CULTURELLE) 1 Each Cap.sprink, 1 CAP PO BID for antibiotic use for 14 Days, #28 CAP Prov:IWONA HARRELL MD 10/04/21 Erythromycin Base (Erythromycin) 1 Gm Oint...g., 0.5 INCH OU Q4HRS for blephritis for 4 Days, #1 MISC Prov:IWONA HARRELL MD 10/04/21 Guaifenesin (MUCINEX) 600 Mg Tablet.er, 600 MG PO BID for cough, #30 TAB.SR Prov:IWONA HARRELL MD 10/04/21 Acetaminophen (ACETAMINOPHEN) 325 Mg Tablet, 650 MG PO PRN Q6HRS PRN for MILD PAIN / TEMP > 100.3'F, #30 TAB Prov:IWONA HARRELL MD 10/04/21 Benzonatate (BENZONATATE) 100 Mg Capsule, 100 MG PO [id number] for cough for 7 Days, #21 CAP Prov:IWONA HARRELL MD 10/04/21 Heparin Sodium,Porcine (HEPARIN SODIUM) 5,000 Unit/1 Ml Vial, 5000 UNIT SQ Q12HR for DVT prophylaxis for 10 Days, #20 EACH Prov:IWONA HARRELL MD 10/04/21 Ipratropium/Albuterol Sulfate (DUONEB 0.5-3(2.5) MG/3 ML) 3 Ml Ampul.neb, 3 ML NEB RTQID for COPD for 14 Days, #56 EACH Prov:IWONA HARRELL MD 10/04/21 Insulin Aspart (NOVOLOG) 100 Unit/1 Ml Cartridge, 5 UNIT SQ BID for DM for 30 Days, #1 EACH Prov:IWONA HARRELL MD 10/04/21 Hum Insulin Nph/Reg Insulin Hm (HUMULIN 70-30 VIAL) 100 Unit/1 Ml Vial, 14 UNIT SQ BID for DM for 30 Days, #1 VIAL IN AM and at bedtime Prov:IWONA HARRELL MD 10/04/21 Cetirizine Hcl (ZYRTEC) 10 Mg Tablet, 10 MG PO HS PRN for ITCHING, #90 TAB Prov:GUERA SORENSON APRN 08/19/15 Montelukast Sodium (MONTELUKAST SODIUM TABLET ) 10 Mg Tablet, 10 MG PO QHS, #30 TAB Prov:GUERA SORENSON APRN 08/19/15 Gabapentin (GABAPENTIN ) 100 Mg Capsule, 100 MG PO TID, #90 CAP Prov:GUERA SORENSON APRN 08/19/15 Allopurinol (ALLOPURINOL) 100 Mg Tablet, 100 MG PO HS, #30 TAB Prov:GUERA SORENSON APRN 08/19/15 [Hydrocodone/Acetaminophen] 1 TAB TABLET No Conflict Check, 1 TAB PO PRN Q6HRS PRN for PAIN for 30 Days, TAB 0 Refills Prov:IWONA HARRELL MD 12/29/13 Reported Medications Carvedilol (COREG ) 6.25 Mg Tablet, 1 TAB PO BID, #180 TAB 1 Refill 12/25/13 Discontinued Reported Medications Spironolactone (SPIRONOLACTONE) 25 Mg Tablet, 1 TAB PO DAILY, #90 TAB 1 Refill 12/25/13 Furosemide (FUROSEMIDE) 40 Mg Tablet, 40 MG PO QHS, TAB 12/25/13 Discontinued Scripts Amoxicillin/Potassium Clav (AUGMENTIN 875-125 TABLET) 1 Each Tablet, 1 TAB PO BID for 10 Days, #20 TAB 0 Refills Prov:ROBB SOTO MANAGER US[employer]PERIENCE 02/24/19 Famciclovir (FAMCICLOVIR) 500 Mg Tablet, 500 MG PO TID for 7 Days, #21 TAB Prov:WILMER MASON MANAGER [employer]PER[employer] 08/11/17 Fluconazole (DIFLUCAN) 100 Mg Tablet, 100 MG PO DAILY, #10 TAB Prov:GUERA SORENSON MANAGER [employer] 08/19/15 IWONA HARRELL MD October 04, 2021 09:28
--- NOTE | 2021-10-04 09:32 | PDOC3 ---
IM DISCHARGE SUMMARY Date of Admission Date of Admission Date of Admission: September 30, 2021 at 10:37 Date of Discharge Date of Discharge October 04, 2021 Primary Diagnosis Primary Diagnosis 1. Acute bronchitis with exacerbation of chronic obstructive pulmonary disease. 2. Rule out COVID-19 infection. 3. Morbid obesity. 4. Diabetes mellitus type 2 with neuropathy. 5. Osteoarthritis. 6. Chronic lumbar spinal stenosis. 7. Fibromyalgia. 8. Gout. 9. Chronic kidney disease stage III to IV. Her baseline creatinine is 2.1. 10. Pneumonia. 11.Hyperkalemia 12. Acute systolic congestive heart failure 13. Acute hypoxic respiratory failure. Consults Consults Isaac Mckeon MD; Didier Castillo MD; Tahir Pagan MD Labs Labs Laboratory Tests Test 10/03/21 11:39 10/03/21 16:54 10/03/21 19:11 10/04/21 00:15 Glucose (Fingerstick) 232 mg/dL (70-99) H 160 mg/dL (70-99) H 192 mg/dL (70-99) H Urine Collection Type Unknown Urine Color (Auto) Light yellow Urine Turbidity Clear Urine pH (Auto) 5.5 (<5.0-8.0) Urine Specific [place] 1.014 (1.000-1.030) Urine Protein (Auto) Negative mg/dL (Negative) Urine Glucose (Auto)(UA) Negative mg/dL (Negative) Urine Ketones (Auto) Negative mg/dL (Negative) Urine Blood (Auto) Negative (Negative) Urine Nitrite Negative (Negative) Urine Bilirubin (Auto) Negative (Negative) Urine Urobilinogen (Auto) Normal mg/dL (Normal) Urine Leukocyte Esterase (Auto) Negative (Negative) Urine RBC 0 /HPF (0-2) Urine WBC Occ /HPF (0-4) Urine Squamous Epithelial Cells Mod /LPF Urine Bacteria 0 /HPF (0-FEW) Urine Mucus Slight /LPF Test 10/04/21 07:13 10/04/21 07:45 Glucose (Fingerstick) 150 mg/dL (70-99) H Sodium Level 142 mmol/L (136-145) Potassium Level 5.4 mmol/L (3.5-5.1) H Chloride Level 106 mmol/L (98-107) Carbon Dioxide Level 26 mmol/L (21-32) Anion Gap 10 (6-14) Blood Urea Nitrogen 67 mg/dL (7-20) H Creatinine 2.1 mg/dL (0.6-1.0) H Estimated GFR (Cockcroft-Gault) 22.8 Glucose Level 141 mg/dL (70-99) H Calcium Level 8.6 mg/dL (8.5-10.1) Laboratory Tests 10/04/21 07:45 Brief hospital course Brief hospital course This 75 years old female with a history of morbid obesity, chronic lymphedema, CKD 3-4, hypertension, hyperlipidemia, nonischemic cardiomyopathy was seen in my office recently and at that time she was asymptomatic. About five days ago, she started having cough, congestion, dyspnea and fever and chills. She was seen in the emergency room yesterday. BNP was 1700. Chest x-ray was unremarkable. Her WBC count was 11.2, hemoglobin 11.8. She had a fever of 100 degrees Fahrenheit in the emergency room, she had a BUN 42, creatinine 2.1 and BNP of 1726. She was given a dose of IV Lasix. Influenza A and B were negative. SARS-CoV-2 rapid antigen was negative. Because of the dyspnea and elevated BNP, the patient was admitted for further evaluation and management. For more details regarding the past history, family history, social history, surgical history and other details, please refer to the H&P. 1. Acute bronchitis with pneumonia. I will start her on IV Rocephin and Zithromax. Consult Dr. Mckeon for pulmonary evaluation and management. Leukocytosis is improving. in a.m. influenza A, influenza B, SARS-CoV-2 rapid antigen test as well as PCR is negative.Blood c/s x2 are negative. Leukocytosis is improving but fever is persistent. Consult Dr. Pagan for infectious disease evaluation and management. Add DuoNeb and budesonide breathing treatment. CT scan of chest without contrast on October 01, 2021 1. Mild left lower lobe infiltrates pneumonia is possible. 2. Groundglass atelectasis or infiltrates in other lobes. 3. Small rounded infiltrates or nodules in the right upper lobe follow-up would be of benefit. 4. Limitations due to artifact from the patient's size and restaurant motion. 5. Distended gallbladder. 6. Narrowing of the trachea and mainstem bronchi. Changed to p.o. cefdinir. 2. Acute on chronic diastolic and systolic congestive heart failure. Consult Dr. Castillo for cardiology evaluation and management. Echocardiogram shows ejection fraction of 35 to 40% with diastolic dysfunction. Monitor electrolytes and renal function. Echocardiogram The left ventricle is normal size. LV systolic function is moderately impaired. The Ejection Fraction is 35-40%. There is global hypokinesis of the left ventricle. Doppler and Color Flow revealed no significant aortic regurgitation. There is no significant aortic valvular stenosis. Doppler and Color-flow revealed mild to moderate mitral regurgitation. Doppler and Color Flow revealed trace tricuspid regurgitation. She will need work-up for ischemia as outpatient. 3. Diabetic neuropathy. She takes 14 units of Novolin NPH 70/30 in the morning and 14 units at bedtime. She takes 10 units of NovoLog insulin in the morning and 10 units at supper. I will adjust the dose of insulin and use sliding scale insulin. Monitor blood sugars. 4. Acute hypoxic respiratory failure. Continue oxygen by nasal cannula. She is still requiring oxygen by nasal cannula 3 L/min. 5. Exacerbation of COPD. Daily IV Solu-Medrol. Continue nebulizer. [facility]charge to [facility] on p.o. steroids. 6. Acute kidney injury with CKD. Creatinine has decreased from 3-2.1. Her baseline creatinine is 2.1. And has increased to 60 and this may be due to steroid use. Potassium is 5.4. Discontinue spironolactone. She will need to restart Lasix at a later date. Physical deconditioning. Order PT OT. For details, please refer to the orders. Monitor closely. Start subcutaneous heparin for DVT prophylaxis. Prognosis of this patient is poor due to her multiple medical problems. Clinically improving slowly. Still remains very weak and on oxygen by nasal cannula 3 L/min. [facility]charge to [facility] unit on p.o. antibiotics and steroids. Medications Medications reviewed and reconciled for discharge. Home Meds Active Scripts Methylprednisolone (MEDROL) 4 Mg Tab.ds.pk, 1 PKG PO UD for copd, #1 PKG Prov:TONA HARRELL MD 10/04/21 Cefdinir (CEFDINIR) 300 Mg Capsule, 1 CAP PO BID for pneumonia, #14 CAP Prov:TONA HARRELL MD 10/04/21 Insulin Lispro (Admelog) 100 Unit/1 Ml Vial, 0 SQ BIDBFRMEAL for DM for 30 Days, #1 EACH Glucose 151-200 give 2 units Glucose 201- 250 give 3 units. Glucose 251-300 give 4 units Glucose 301-350 give 6 units Glucose 351-400 give 8 units. Prov:TONA HARRELL MD 10/04/21 Lactobacillus Rhamnosus Gg (CULTURELLE) 1 Each Cap.sprink, 1 CAP PO BID for antibiotic use for 14 Days, #28 CAP Prov:TONA HARRELL MD 10/04/21 Erythromycin Base (Erythromycin) 1 Gm Oint...g., 0.5 INCH OU Q4HRS for blephritis for 4 Days, #1 MISC Prov:TONA HARRELL MD 10/04/21 Guaifenesin (MUCINEX) 600 Mg Tablet.er, 600 MG PO BID for cough, #30 TAB.SR Prov:TONA HARRELL MD 10/04/21 Acetaminophen (ACETAMINOPHEN) 325 Mg Tablet, 650 MG PO PRN Q6HRS PRN for MILD PAIN / TEMP > 100.3'F, #30 TAB Prov:TONA HARRELL MD 10/04/21 Benzonatate (BENZONATATE) 100 Mg Capsule, 100 MG PO [id number] for cough for 7 Days, #21 CAP Prov:TONA HARRELL MD 10/04/21 Heparin Sodium,Porcine (HEPARIN SODIUM) 5,000 Unit/1 Ml Vial, 5000 UNIT SQ Q12HR for DVT prophylaxis for 10 Days, #20 EACH Prov:TONA HARRELL MD 10/04/21 Ipratropium/Albuterol Sulfate (DUONEB 0.5-3(2.5) MG/3 ML) 3 Ml Ampul.neb, 3 ML NEB RTQID for COPD for 14 Days, #56 EACH Prov:TONA HARRELL MD 10/04/21 Insulin Aspart (NOVOLOG) 100 Unit/1 Ml Cartridge, 5 UNIT SQ BID for DM for 30 Days, #1 EACH Prov:TONA HARRELL MD 10/04/21 Hum Insulin Nph/Reg Insulin Hm (HUMULIN 70-30 VIAL) 100 Unit/1 Ml Vial, 14 UNIT SQ BID for DM for 30 Days, #1 VIAL IN AM and at bedtime Prov:TONA HARRELL MD 10/04/21 Cetirizine Hcl (ZYRTEC) 10 Mg Tablet, 10 MG PO HS PRN for ITCHING, #90 TAB Prov:GUERA SORENSON RHEUMATOLOGIST 08/19/15 Montelukast Sodium (MONTELUKAST SODIUM TABLET ) 10 Mg Tablet, 10 MG PO QHS, #30 TAB Prov:GUERA SORENSON RHEUMATOLOGIST 08/19/15 Gabapentin (GABAPENTIN ) 100 Mg Capsule, 100 MG PO TID, #90 CAP Prov:GUERA SORENSON RHEUMATOLOGIST 08/19/15 Allopurinol (ALLOPURINOL) 100 Mg Tablet, 100 MG PO HS, #30 TAB Prov:GUERA SORENSON RHEUMATOLOGIST 08/19/15 [Hydrocodone/Acetaminophen] 1 TAB TABLET No Conflict Check, 1 TAB PO PRN Q6HRS PRN for PAIN for 30 Days, TAB 0 Refills Prov:TONA HARRELL MD 12/29/13 Reported Medications Carvedilol (COREG ) 6.25 Mg Tablet, 1 TAB PO BID, #180 TAB 1 Refill 12/25/13 Discontinued Reported Medications Spironolactone (SPIRONOLACTONE) 25 Mg Tablet, 1 TAB PO DAILY, #90 TAB 1 Refill 12/25/13 Furosemide (FUROSEMIDE) 40 Mg Tablet, 40 MG PO QHS, TAB 12/25/13 Discontinued Scripts Amoxicillin/Potassium Clav (AUGMENTIN 875-125 TABLET) 1 Each Tablet, 1 TAB PO BID for 10 Days, #20 TAB 0 Refills Prov:BRITTANYROBB M RHEUMATOLOGIST 02/24/19 Famciclovir (FAMCICLOVIR) 500 Mg Tablet, 500 MG PO TID for 7 Days, #21 TAB Prov:WILMER MASON RHEUMATOLOGIST 08/11/17 Fluconazole (DIFLUCAN) 100 Mg Tablet, 100 MG PO DAILY, #10 TAB Prov:GUERA SORENSON RHEUMATOLOGIST 08/19/15 Allergy Allergies Coded Allergies Type Severity Reaction Last Updated Verified No Known Drug Allergies 12/25/13 No Follow up See Dr. Tona Harrell in 7 days after discharge from shelter. Follow-up with cosmetology teacher and placement director. DISPOSITION: Long-Term facility Comments Discharge Management - 35 minutes. For other details please refer to discharge instructions Justicifation of Admission Dx: Justifications for Admission: Justification of Admission Dx: Yes Comminuty Aquired Pneumonia: Hypoxemia TONA HARRELL MD October 04, 2021 09:31
[2021-10-04] MEDS: methylPREDNISolone SOD SUCC PF 40 MG/ML VIAL. IV SCH (09:37)
[2021-10-04] MEDS: BENZONATATE 100 MG CAPSULE. PO SCH ×2 (09:40→13:59)
[2021-10-04] MEDS: LACTOBACILLUS RHAMNOSUS GG 1 CAPSULE. PO SCH (09:41)
[2021-10-04] MEDS: GABAPENTIN 100 MG CAPSULE. PO SCH ×2 (09:41→13:59)
[2021-10-04] MEDS: HEPARIN for SUB-Q USE 5,000 UNIT/ML VIAL. SQ SCH (09:52)
[2021-10-04] MEDS: cefTRIAXone IV Push 1 GM VIAL. IVP SCH (10:06)
[2021-10-04 11:00] VITALS: BP 126/45
--- NOTE | 2021-10-04 11:16 | PDOC ---
HEIKE FORTUNE BENJI 10/04/21 1115: CARDIO Progress Notes Date and Time Date of Service 10/04/21 Time of Evaluation 1115 Subjective Subjective: No Chest Pain, No Palpitations, No Dizziness, Other (cough persists ) Vitals Vitals Vital Signs Date Time Temp Pulse Resp B/P (MAP) Pulse Ox O2 Delivery O2 Flow Rate FiO2 10/04/21 11:06 95 Nasal Cannula 3.0 10/04/21 08:00 71 93/57 10/04/21 07:00 98.0 18 98.0 Weight Weight [ ] Input and Output Intake and Output Intake and Output 10/04/21 07:00 Intake Total 680 ml Balance 680 ml Intake Oral 680 ml # Voids 2 Laboratory Labs Laboratory Tests Test 10/03/21 11:39 10/03/21 16:54 10/03/21 19:11 10/04/21 00:15 Glucose (Fingerstick) 232 mg/dL (70-99) 160 mg/dL (70-99) 192 mg/dL (70-99) Urine Collection Type Unknown Urine Color (Auto) Light yellow Urine Turbidity Clear Urine pH (Auto) 5.5 (<5.0-8.0) Urine Specific [place] 1.014 (1.000-1.030) Urine Protein (Auto) Negative mg/dL (Negative) Urine Glucose (Auto)(UA) Negative mg/dL (Negative) Urine Ketones (Auto) Negative mg/dL (Negative) Urine Blood (Auto) Negative (Negative) Urine Nitrite Negative (Negative) Urine Bilirubin (Auto) Negative (Negative) Urine Urobilinogen (Auto) Normal mg/dL (Normal) Urine Leukocyte Esterase (Auto) Negative (Negative) Urine RBC 0 /HPF (0-2) Urine WBC Occ /HPF (0-4) Urine Squamous Epithelial Cells Mod /LPF Urine Bacteria 0 /HPF (0-FEW) Urine Mucus Slight /LPF Test 10/04/21 07:13 10/04/21 07:45 Glucose (Fingerstick) 150 mg/dL (70-99) Sodium Level 142 mmol/L (136-145) Potassium Level 5.4 mmol/L (3.5-5.1) Chloride Level 106 mmol/L (98-107) Carbon Dioxide Level 26 mmol/L (21-32) Anion Gap 10 (6-14) Blood Urea Nitrogen 67 mg/dL (7-20) Creatinine 2.1 mg/dL (0.6-1.0) Estimated GFR (Cockcroft-Gault) 22.8 Glucose Level 141 mg/dL (70-99) Calcium Level 8.6 mg/dL (8.5-10.1) Microbiology Micro Microbiology 09/29/21 Blood Culture - Preliminary, Resulted NO GROWTH AFTER 4 DAYS Physical Exam HEENT: Neck Supple W Full Motion Chest: Symmetric LUNGS: Other (diminished bases) Heart: RRR Abdomen: Other (obese) Extremities: Other (venous dermatitis) Neurology: alert, oriented, follow commands Assessment Assessment 1. Acute respiratory failure with acute bronchitis/URI/PNA 2. Acute on chronic systolic heart failure: 2D echo showed LVEF 35 to 40%. s/p IV Lasix 3. HTN: now controlled 4. Diabetes, II 5. VLADISLAV on CKD 6. Hyperkalemia 7. Morbid obesity Recommendations Continue Coreg as BP allows We will hold off on ACEI/ARB secondary to renal insufficiency Add ASA therapy Outpatient ischemic evaluation Follow up in our office with Dr. Castillo has been arranged Justicifation of Admission Dx: Justifications for Admission: Justification of Admission Dx: Yes Comminuty Aquired Pneumonia: Hypoxemia MARKO CASTILLO MD 10/07/21 0904: CARDIO Progress Notes Plan Plan Late entry for 10/04/21 The patient was seen and interviewed as well as examined at the bedside. The chart was reviewed. The case was discussed. Agree with the plan of care. HEIKE FORTUNE APRN October 04, 2021 11:15 MARKO CASTILLO MD Oct 07, 2021 09:04
--- NOTE | 2021-10-04 11:55 | PDOC ---
Infectious Disease Note Subjective: Subjective Patient without complaints Vital Signs: Vital Signs Vital Signs Date Time Temp Pulse Resp B/P (MAP) Pulse Ox O2 Delivery O2 Flow Rate FiO2 10/04/21 11:06 95 Nasal Cannula 3.0 10/04/21 11:00 97.4 69 18 126/45 (72) 97.4 Physical Exam: PHYSICAL EXAM GENERAL: Alert, oriented female, not in distress. HEENT:no icterus NECK: Supple, no JVP, no lymphadenopathy. LUNGS: Clear. HEART: S1, S2, regular. ABDOMEN: Benign. EXTREMITIES: No edema or cyanosis. SKIN: Unremarkable. NEUROLOGIC: The patient is alert, awake, and appropriate. No focal neurologic deficit. Medications: Inpatient Meds: Medications reviewed. Labs: Lab Laboratory Tests Test 10/03/21 16:54 10/03/21 19:11 10/04/21 00:15 10/04/21 07:13 Glucose (Fingerstick) 160 mg/dL (70-99) 192 mg/dL (70-99) 150 mg/dL (70-99) Urine Collection Type Unknown Urine Color (Auto) Light yellow Urine Turbidity Clear Urine pH (Auto) 5.5 (<5.0-8.0) Urine Specific [place] 1.014 (1.000-1.030) Urine Protein (Auto) Negative mg/dL (Negative) Urine Glucose (Auto)(UA) Negative mg/dL (Negative) Urine Ketones (Auto) Negative mg/dL (Negative) Urine Blood (Auto) Negative (Negative) Urine Nitrite Negative (Negative) Urine Bilirubin (Auto) Negative (Negative) Urine Urobilinogen (Auto) Normal mg/dL (Normal) Urine Leukocyte Esterase (Auto) Negative (Negative) Urine RBC 0 /HPF (0-2) Urine WBC Occ /HPF (0-4) Urine Squamous Epithelial Cells Mod /LPF Urine Bacteria 0 /HPF (0-FEW) Urine Mucus Slight /LPF Test 10/04/21 07:45 10/04/21 11:35 Sodium Level 142 mmol/L (136-145) Potassium Level 5.4 mmol/L (3.5-5.1) Chloride Level 106 mmol/L (98-107) Carbon Dioxide Level 26 mmol/L (21-32) Anion Gap 10 (6-14) Blood Urea Nitrogen 67 mg/dL (7-20) Creatinine 2.1 mg/dL (0.6-1.0) Estimated GFR (Cockcroft-Gault) 22.8 Glucose Level 141 mg/dL (70-99) Calcium Level 8.6 mg/dL (8.5-10.1) Glucose (Fingerstick) 179 mg/dL (70-99) Objective: Assessment: 1. Community-acquired pneumonia. 2. Fever. 3. Leukocytosis. 4. Renal insufficiency. 5. Obesity. Plan: Plan of Care switch over to cefdinir Symptomatic treatment with Phenergan with codeine. Supportive care d/w ADRY MACARIO MD October 04, 2021 11:55
--- NOTE | 2021-10-04 12:45 | NUR ---
SS following up with discharge planning. SS reviewed pt chart and discussed with pt RN. Pt is currently requiring oxygen at three liters nasal canula. COVID19 negative. PT/OT ordered. OT recommended residential unit. Currently awaiting PT evaluation. Discharge orders on the chart for residential unit. SS met with pt and discussed discharge planning and residential unit. Pt agreeable to residential unit and requested referral to [facility], ; fax [phone]. Pt reported that she is vaccinated x3. Currently awaiting PT note at this time. SS will continue to follow for discharge planning. Addendum: 10/04/21 at 1623 by ELLA ZARATE PT recommended residential unit. Referral sent to [facility].
[2021-10-04] MEDS ORDERED: ASPI-886 PO (14:27)
[2021-10-04 15:00] VITALS: BP 161/77
[2021-10-04 19:00] VITALS: BP 156/64
[2021-10-04] MEDS ORDERED: NYSTATIN TOPICAL POWDER 15GM BOTTLE. TP SCH (21:00)
[2021-10-04] MEDS ORDERED: CEFDINIR 300 MG CAPSULE PO SCH (21:00)
== END 2021-10-05 | DRG 193 ==
LOC: ER 13:26 → 5 NORTH 17:50 → OBSVTOIN 09-30 10:37
PROVIDERS: ADMIT Internal Medicine; ATTEND Internal Medicine
DX: J18.9 Pneumonia, unspecified organism (principal); J96.01 Acute respiratory failure with hypoxia; I50.43 Acute on chronic combined systolic (congestive) and diastolic (congestive) heart failure; I13.0 Hypertensive heart and chronic kidney disease with heart failure and stage 1 through stage 4 chronic kidney disease, or unspecified chronic kidney disease; J44.1 Chronic obstructive pulmonary disease with (acute) exacerbation; N17.9 Acute kidney failure, unspecified; J44.0 Chronic obstructive pulmonary disease with (acute) lower respiratory infection; Z68.43 Body mass index [BMI] 50.0-59.9, adult; I42.8 Other cardiomyopathies; N18.4 Chronic kidney disease, stage 4 (severe); J20.9 Acute bronchitis, unspecified; E11.22 Type 2 diabetes mellitus with diabetic chronic kidney disease; E11.40 Type 2 diabetes mellitus with diabetic neuropathy, unspecified; E66.01 Morbid (severe) obesity due to excess calories; E78.5 Hyperlipidemia, unspecified; E87.5 Hyperkalemia; H10.33 Unspecified acute conjunctivitis, bilateral; I34.0 Nonrheumatic mitral (valve) insufficiency; I87.2 Venous insufficiency (chronic) (peripheral); K82.8 Other specified diseases of gallbladder; M10.9 Gout, unspecified; M19.90 Unspecified osteoarthritis, unspecified site; M48.061 Spinal stenosis, lumbar region without neurogenic claudication; M79.7 Fibromyalgia; Z20.822 Contact with and (suspected) exposure to COVID-19; Z79.4 Long term (current) use of insulin; Z80.0 Family history of malignant neoplasm of digestive organs; Z80.42 Family history of malignant neoplasm of prostate; Z82.49 Family history of ischemic heart disease and other diseases of the circulatory system; Z83.3 Family history of diabetes mellitus; Z87.891 Personal history of nicotine dependence; Z90.710 Acquired absence of both cervix and uterus; Z96.659 Presence of unspecified artificial knee joint; G89.29 Other chronic pain
CPT/HCPCS: 36415; 71046; 71250; 80048; 80053; 80061; 81001; 82962; 83605; 83735; 83880; 84443; 84484; 85025; 85379; 85610; 87040; 87428; 93005; 93306; 94640; 94760; 96374; 96375; G0378; G0379; J0456; J0696; J1644; J1815; J1940; J2405; J2920; J7060; U0003; 97535-GO; 99285-25; C8929; J7626